=== PATIENT | female | born 1935 | race Caucasian/White ===

== ENCOUNTER → 2016-06-14 | Outpatient (CLI) | payer OTHER ==
[2016-06-14 12:17] LABS: ALBUMIN 3.5 GM/DL (3.2-5.2); ALBUMIN/GLOBULIN RATIO 1.03 (1.00-1.93); ALKALINE PHOSPHATASE 48 U/L (45-117); ALT/SGPT 14 U/L (12-78); ANION GAP 11 MEQ/L (8-16); AST/SGOT 13 U/L (15-37); BILIRUBIN,TOTAL 0.6 MG/DL (0.2-1.0); BLOOD UREA NITROGEN 20 MG/DL (7-18); CALCIUM LEVEL 8.7 MG/DL (8.8-10.2); CARBON DIOXIDE LEVEL 26 MEQ/L (21-32); CHLORIDE LEVEL 103 MEQ/L (98-107); CREATININE FOR GFR 0.82 MG/DL (0.55-1.02); GLOMERULAR FILTRATION RATE > 60.0 (>32); GLUCOSE, FASTING 205 MG/DL (83-110); POTASSIUM SERUM 3.9 MEQ/L (3.5-5.1); SODIUM LEVEL 140 MEQ/L (136-145); TOTAL PROTEIN 6.9 GM/DL (6.4-8.2)
== END ==
LOC: M WUC 08:44
PROVIDERS: ATTEND Nurse Practitioner Family
DX: E11.618 Type 2 diabetes mellitus with other diabetic arthropathy (principal)

== ENCOUNTER → 2016-09-27 | Outpatient (CLI) | payer OTHER ==
--- NOTE | 2016-09-27 13:22 | REP ---
Left hand series: Four views. History: Pain. Findings: Four views of the left hand show diffuse osteopenia. There is advanced osteoarthritis at the first carpometacarpal articulation and at the PIP joints of each of the fingers and to a lesser extent the DIP joint. Vascular calcification is noted. There is diffuse soft tissue swelling over the carpus and distal radius. No erosive change or fracture is seen. Impression: Advanced osteoarthritic changes. Soft tissue swelling. Osteopenia. Vascular calcification. Signed by Braxton Godoy MD 09/27/2016 01:40 P
--- NOTE | 2016-09-27 13:22 | REP ---
Right wrist series: Four views. History: Pain and swelling. Findings: Four views of the right wrist show diffuse osteopenia. There is diffuse soft tissue swelling about the carpus. Vascular calcification is noted. No fracture is seen. There is osteoarthritic change in several of the intercarpal joints and in the first carpometacarpal articulation. Impression: Osteoarthritis. Diffuse osteoporosis. Soft tissue swelling and vascular calcification. There is also widening of the naviculo-lunate interval consistent with degeneration of the naviculo-lunate ligament. No acute bony abnormality seen. Signed by Braxton Godoy MD 09/27/2016 01:41 P
== END ==
LOC: M WUC 11:58
PROVIDERS: ATTEND Physician Assistant
DX: M85.80 Other specified disorders of bone density and structure, unspecified site (principal); M61.441 Other calcification of muscle, right hand; M25.531 Pain in right wrist; M79.642 Pain in left hand

== ENCOUNTER → 2016-11-10 | Outpatient (REF) | payer OTHER | LOC: M LAB REF 10:31 | PROVIDERS: ATTEND Physician Assistant | DX: J02.9 Acute pharyngitis, unspecified (principal) ==

== ENCOUNTER → 2016-11-28 | Outpatient (CLI) | payer OTHER ==
[2016-11-28 12:31] LABS: MEAN CORPUSCULAR HEMOGLOBIN 31.9 pg (27.0-33.0); MEAN CORPUSCULAR HGB CONC 33.2 g/dl (32.0-36.5); MEAN CORPUSCULAR VOLUME 96.3 fl (80.0-96.0); RED CELL DISTRIBUTION WIDTH 13.6 % (11.5-14.5); WHITE BLOOD COUNT 12.5 10^3/uL (4.0-10.0)
[2016-11-28 12:59] LABS: ALBUMIN 3.2 GM/DL (3.2-5.2); ALBUMIN/GLOBULIN RATIO 0.91 (1.00-1.93); ALKALINE PHOSPHATASE 48 U/L (45-117); ALT/SGPT 13 U/L (12-78); ANION GAP 11 MEQ/L (8-16); AST/SGOT 10 U/L (15-37); BILIRUBIN,TOTAL 0.8 MG/DL (0.2-1.0); BLOOD UREA NITROGEN 13 MG/DL (7-18); CALCIUM LEVEL 8.8 MG/DL (8.8-10.2); CARBON DIOXIDE LEVEL 27 MEQ/L (21-32); CHLORIDE LEVEL 101 MEQ/L (98-107); CHOLESTEROL LEVEL 159 MG/DL (<200); CREATININE FOR GFR 0.74 MG/DL (0.55-1.02); GLOMERULAR FILTRATION RATE > 60.0 (>32); GLUCOSE, FASTING 219 MG/DL (83-110); POTASSIUM SERUM 3.8 MEQ/L (3.5-5.1); SODIUM LEVEL 139 MEQ/L (136-145); TOTAL PROTEIN 6.7 GM/DL (6.4-8.2); TRIGLYCERIDES LEVEL 279 MG/DL (<150)
== END ==
LOC: M WUC 08:27
PROVIDERS: ATTEND Family Medicine
DX: M06.9 Rheumatoid arthritis, unspecified (principal); E11.618 Type 2 diabetes mellitus with other diabetic arthropathy

== ENCOUNTER → 2017-01-31 | Day surgery (SDC) | payer OTHER ==
[~2017-01-31] VITALS: Ht 157.5 cm; Wt 70.7 kg
[~2017-01-31] MED LIST: ACETYLCHOLINE OPHTH SOLN 1% 2ML (MIOCHOL-E) As Ordered ONE; ASPI81CH PO; BALANCED SALT IRRIGATION SOLUTION 500ML BAG (FOR OR EYE MACHINE) As Ordered ONE; BISO5TAB2 PO; CEFUROXIME 1MG/0.1ML INTRACAMERAL INJ As Ordered ONE; DUOVISC (0.50ML VISCOAT/0.55ML PROVISC) OPHTH KIT As Ordered ONE; GLIM2TA PO; HumaLOG INSULIN (NovoLOG) PER UNIT As Ordered ONE; HumaLOG INSULIN (NovoLOG) PER UNIT SC ONE; LABETALOL HCL 100 MG/20 ML VIAL As Ordered ONE; LIDOCAINE 0.75%/EPINEPHRINE 0.025% IN BSS 1ML SYR INTRACAMERAL (OR ONLY) As Ordered ONE; LOSA50TA20 PO; MELA5TAB21 PO; METF10004 PO; MIDAZOLAM INJ 2 MG/2 ML VIAL (J2250) As Ordered ONE; OFLOXACIN 0.3 % (OCUFLOX) OPTH SOL 5ML OS ONE; PHENYLEPHRINE 2.5% OPHTH SOL 2ML OS ONE; POVIDONE-IODINE 5% OPHTH PREP SOL 30ML As Ordered ONE; PRAV40TA2 PO; PROBCAP4 PO; PROPARACAINE 0.5% OPHTH SOL 15ML OS ONE; TROPICAMIDE 1% OPHTH SOLN 2ML OS ONE; VITADRO5 PO; fentaNYL 100 MCG/2 ML INJECTION (J3010) As Ordered ONE
[2017-01-31 12:41] VITALS: BP 148/68
--- NOTE | 2017-02-07 09:58 | RO ---
DATE OF PROCEDURE: 01/31/2017 PREOPERATIVE DIAGNOSES: 1. Visually significant nuclear sclerotic cataract of the left eye. 2. Glaucoma. POSTOPERATIVE DIAGNOSES: 1. Visually significant nuclear sclerotic cataract of the left eye. 2. Glaucoma. PROCEDURE: 1. Extracapsular cataract removal and insertion of intraocular lens implant AU00T0, 20.5. 2. Placement of Glaukos iStent left eye. SURGEON: Wilbur Chamorro DO FIELD INSPECTOR: ANESTHESIA: Local with monitored anesthesia care (MAC). COMPLICATIONS: None. POSTOPERATIVE CONDITION: Stable. INDICATION FOR SURGERY: Blurred vision left eye affecting patient's activities of daily living. DESCRIPTION OF PROCEDURE: The patient was seen in the preoperative area and properly identified. The correct operative eye was identified and marked. Attention was turned to that eye. The patient received topical antibiotics in the preoperative area. The patient then received topical dilating drops consisting of tropicamide and phenylephrine. The patient was then transferred to the operating room. The correct side was re-identified. The patient received topical anesthetics and antibiotics on the surface of the eye. The eye was prepped and draped in a sterile fashion. The upper and lower eyelids were isolated with Tegaderm tape, and the lids were held open with an adjustable speculum. Using a sideport blade, a paracentesis incision was made. Intraocular preservative-free lidocaine was then injected into the anterior chamber. Viscoelastic was then injected into the anterior chamber through the paracentesis. Using a 2.4 mm sharp-tipped keratome, the anterior chamber was entered via a temporal clear corneal incision. A continuous curvilinear capsulorrhexis was created with the aid of a 26-gauge cystotome and Utrata forceps. Hydrodissection was performed with balanced salt solution (BSS) on a blunt cannula until the nucleus was freely mobile. The crystalline lens was phacoemulsified and aspirated. Additional cohesive viscoelastic was placed into the capsular bag to deepen it. An AU00T0, 25.0 lens was placed into the capsular bag and confirmed by visualizing the continuous curvilinear capsulorrhexis. After the implant was placed within the capsular bag and confirmed by visualizing the anterior capsulorrhexis, additional viscoelastic was placed into the anterior chamber as well as on top of the cornea. The patient's head was then untaped, and the microscope was rotated to approximately 45 degrees. The head was then turned away. Gonioprism was placed on top of the cornea, and the trabecular meshwork was visualized. The Glaukos iStent was placed through the temporal clear corneal incision and brought up to the trabecular meshwork. At that time, the iStent was fed within the trabecular meshwork without difficulty. A small gush of heme was noted indicating appropriate placement. A gentle tapping motion was performed to allow proper seating. The patient's head was then rotated back to the face-up position, and microscope was rotated back to 0 degrees. Irrigation/aspiration was then performed to remove all viscoelastic from the anterior chamber. Balance salt solution (BSS) was used to hydrate the temporal clear corneal incision as well as the paracentesis incision. Miochol was placed showing a moderately small pupil. A Weck spear was used to check the temporal incision and was found to be dry. At that time, the drape and speculum were removed and a shield was placed over the eye. The patient was then discharge to the postanesthesia care unit (PACU) unit in a stable condition. The patient tolerated the procedure well and was discharged to the recovery unit in a stable condition. CORETTA
== END | disposition home or self-care (01) ==
LOC: M SDC 08:48
PROVIDERS: ATTEND Ophthalmology
DX: H25.12 Age-related nuclear cataract, left eye (principal); H40.9 Unspecified glaucoma; I10 Essential (primary) hypertension; E11.9 Type 2 diabetes mellitus without complications; E78.5 Hyperlipidemia, unspecified; M06.9 Rheumatoid arthritis, unspecified; I49.9 Cardiac arrhythmia, unspecified; Z88.8 Allergy status to other drugs, medicaments and biological substances; Z79.899 Other long term (current) drug therapy; Z79.82 Long term (current) use of aspirin; Z87.891 Personal history of nicotine dependence; Z78.0 Asymptomatic menopausal state
CPT/HCPCS: 66183; 66984; C1783; J2250; J3010; V2632

== ENCOUNTER 2017-02-14 09:55 | Day surgery (SDC) | payer OTHER ==
[~2017-02-14 09:55] MED LIST changes: +ACETAMINOPHEN 325 MG TAB PO; -ACETYLCHOLINE OPHTH SOLN 1% 2ML (MIOCHOL-E) As Ordered ONE; -ASPI81CH PO; -BALANCED SALT IRRIGATION SOLUTION 500ML BAG (FOR OR EYE MACHINE) As Ordered ONE; -BISO5TAB2 PO; -CEFUROXIME 1MG/0.1ML INTRACAMERAL INJ As Ordered ONE; -DUOVISC (0.50ML VISCOAT/0.55ML PROVISC) OPHTH KIT As Ordered ONE; -GLIM2TA PO; -HumaLOG INSULIN (NovoLOG) PER UNIT As Ordered ONE; -HumaLOG INSULIN (NovoLOG) PER UNIT SC ONE; -LABETALOL HCL 100 MG/20 ML VIAL As Ordered ONE; -LIDOCAINE 0.75%/EPINEPHRINE 0.025% IN BSS 1ML SYR INTRACAMERAL (OR ONLY) As Ordered ONE; -LOSA50TA20 PO; -MELA5TAB21 PO; -METF10004 PO; +MIDAZOLAM INJ 2 MG/2 ML VIAL (J2250) As Ordered; -MIDAZOLAM INJ 2 MG/2 ML VIAL (J2250) As Ordered ONE; -OFLOXACIN 0.3 % (OCUFLOX) OPTH SOL 5ML OS ONE; -PHENYLEPHRINE 2.5% OPHTH SOL 2ML OS ONE; -POVIDONE-IODINE 5% OPHTH PREP SOL 30ML As Ordered ONE; -PRAV40TA2 PO; -PROBCAP4 PO; -PROPARACAINE 0.5% OPHTH SOL 15ML OS ONE; -TROPICAMIDE 1% OPHTH SOLN 2ML OS ONE; -VITADRO5 PO; -fentaNYL 100 MCG/2 ML INJECTION (J3010) As Ordered ONE
[2017-02-14] MEDS: PHENYLEPHRINE 2.5% OPHTH SOL 2ML OD (10:30)
[2017-02-14] MEDS: OFLOXACIN 0.3 % (OCUFLOX) OPTH SOL 5ML OD (10:30)
[2017-02-14] MEDS: PROPARACAINE 0.5% OPHTH SOL 15ML OD ×2 (10:30→13:32)
[2017-02-14] MEDS: TROPICAMIDE 1% OPHTH SOLN 2ML OD (10:30)
[2017-02-14] MEDS ORDERED: HumaLOG INSULIN (NovoLOG) PER UNIT As Ordered (10:35)
[2017-02-14 10:39] LABS: BEDSIDE GLUCOSE 270 MG/DL (83-110)
[2017-02-14] MEDS: HumaLOG INSULIN (NovoLOG) PER UNIT SC (10:40)
[2017-02-14] MEDS ORDERED: fentaNYL 100 MCG/2 ML INJECTION (J3010) As Ordered (11:19)
[2017-02-14] MEDS: BALANCED SALT IRRIGATION SOLUTION 500ML BAG (FOR OR EYE MACHINE) As Ordered (11:32)
[2017-02-14] MEDS: LIDOCAINE 0.75%/EPINEPHRINE 0.025% IN BSS 1ML SYR INTRACAMERAL (OR ONLY) As Ordered (11:32)
[2017-02-14] MEDS: CEFUROXIME 1MG/0.1ML INTRACAMERAL INJ As Ordered (11:32)
[2017-02-14] MEDS: DUOVISC (0.50ML VISCOAT/0.55ML PROVISC) OPHTH KIT As Ordered ×2 (11:32)
[2017-02-14] MEDS: ACETYLCHOLINE OPHTH SOLN 1% 2ML (MIOCHOL-E) As Ordered (11:32)
[2017-02-14] MEDS: POVIDONE-IODINE 5% OPHTH PREP SOL 30ML As Ordered (11:32)
[2017-02-14] MEDS ORDERED: TRIMETHOBENZAMIDE 300 MG CAP PO (13:30)
== END 2017-02-14 13:50 | disposition home or self-care (01) ==
LOC: M SDC 09:55
DX: H25.11 Age-related nuclear cataract, right eye (principal); H40.9 Unspecified glaucoma; I49.9 Cardiac arrhythmia, unspecified; I11.9 Hypertensive heart disease without heart failure; E78.2 Mixed hyperlipidemia; K31.84 Gastroparesis; E11.618 Type 2 diabetes mellitus with other diabetic arthropathy; M06.9 Rheumatoid arthritis, unspecified; B37.3 Candidiasis of vulva and vagina; Z88.8 Allergy status to other drugs, medicaments and biological substances; Z79.899 Other long term (current) drug therapy; Z79.82 Long term (current) use of aspirin; Z79.84 Long term (current) use of oral hypoglycemic drugs; Z87.891 Personal history of nicotine dependence
CPT/HCPCS: 66984

== ENCOUNTER → 2017-03-05 | Outpatient (CLI) | payer OTHER | LOC: M WUC 14:31 | DX: M25.532 Pain in left wrist (principal); M19.032 Primary osteoarthritis, left wrist | CPT/HCPCS: 73110 ==

== ENCOUNTER → 2017-05-09 | Outpatient (CLI) | payer OTHER ==
[2017-05-09 13:30] LABS: ANION GAP 10 MEQ/L (8-16); BLOOD UREA NITROGEN 13 MG/DL (7-18); CALCIUM LEVEL 8.9 MG/DL (8.8-10.2); CARBON DIOXIDE LEVEL 25 MEQ/L (21-32); CHLORIDE LEVEL 106 MEQ/L (98-107); CREATININE FOR GFR 0.82 MG/DL (0.55-1.30); GLOMERULAR FILTRATION RATE > 60.0 (>32); GLUCOSE, FASTING 252 MG/DL (70-100); POTASSIUM SERUM 3.9 MEQ/L (3.5-5.1); SODIUM LEVEL 141 MEQ/L (136-145)
[2017-05-09 13:37] LABS: ESTIMATED AVERAGE GLUCOSE 243 MG/DL (60-110); HEMOGLOBIN A1c 10.1 %
== END ==
LOC: M WUC 09:53
DX: E11.618 Type 2 diabetes mellitus with other diabetic arthropathy (principal)
CPT/HCPCS: 83036

== ENCOUNTER → 2017-08-01 | Outpatient (CLI) | payer OTHER ==
[2017-08-01 13:15] LABS: ANION GAP 12 MEQ/L (8-16); BLOOD UREA NITROGEN 15 MG/DL (7-18); CALCIUM LEVEL 8.5 MG/DL (8.8-10.2); CARBON DIOXIDE LEVEL 26 MEQ/L (21-32); CHLORIDE LEVEL 101 MEQ/L (98-107); CREATININE FOR GFR 0.89 MG/DL (0.55-1.30); GLOMERULAR FILTRATION RATE > 60.0 (>32); GLUCOSE, FASTING 250 MG/DL (70-100); POTASSIUM SERUM 3.8 MEQ/L (3.5-5.1); SODIUM LEVEL 139 MEQ/L (136-145)
[2017-08-01 13:48] LABS: ESTIMATED AVERAGE GLUCOSE 217 MG/DL (60-110); HEMOGLOBIN A1c 9.2 %
== END ==
LOC: M WUC 09:13
DX: E11.618 Type 2 diabetes mellitus with other diabetic arthropathy (principal)
CPT/HCPCS: 83036

== ENCOUNTER → 2017-08-26 | Outpatient (CLI) | payer OTHER ==
[2017-08-26 17:13] LABS: BACTERIA, URINE AUTO NEGATIVE (NEGATIVE); RBC, URINE AUTO 0 /HPF (0-3); SQUAMOUS EPITHELIAL CELL UR AU 0 /HPF (0-6); WBC, URINE AUTO 0 /HPF (0-3)
[2017-08-26 17:31] LABS: BASO % 0.4 % (0.0-1.0); EOS # 0.1 10^3/uL (0.0-0.50); EOS % 1.4 % (0.0-3.0); HEMATOCRIT 38.8 % (36.0-47.0); HEMOGLOBIN 12.8 g/dl (12.0-15.5); IMMATURE GRANULOCYTE % 0.1 % (0-3.0); LYMPH # 2.4 10^3/uL (1.5-4.5); LYMPH % 30.3 % (24.0-44.0); MEAN CORPUSCULAR HEMOGLOBIN 31.5 pg (27.0-33.0); MEAN CORPUSCULAR VOLUME 95.6 fl (80.0-96.0); MONO # 0.5 10^3/uL (0.0-0.8); NEUTROPHILS # 4.7 10^3/uL (1.8-7.7); NEUTROPHILS % 60.8 % (36.0-66.0); PLATELET COUNT, AUTOMATED 215 10^3/uL (150-450); RED BLOOD COUNT 4.06 10^6/uL (4.00-5.40); RED CELL DISTRIBUTION WIDTH 13.3 % (11.5-14.5); WHITE BLOOD COUNT 7.8 10^3/uL (4.0-10.0)
[2017-08-26 18:01] LABS: ALBUMIN 3.4 GM/DL (3.2-5.2); ALBUMIN/GLOBULIN RATIO 0.87 (1.00-1.93); ALKALINE PHOSPHATASE 49 U/L (45-117); ALT/SGPT 16 U/L (12-78); ANION GAP 10 MEQ/L (8-16); AST/SGOT 13 U/L (7-37); BILIRUBIN,TOTAL 0.5 MG/DL (0.2-1.0); BLOOD UREA NITROGEN 13 MG/DL (7-18); CALCIUM LEVEL 9.3 MG/DL (8.8-10.2); CARBON DIOXIDE LEVEL 26 MEQ/L (21-32); CHLORIDE LEVEL 103 MEQ/L (98-107); CREATININE FOR GFR 0.88 MG/DL (0.55-1.30); GLOMERULAR FILTRATION RATE > 60.0 (>32); GLUCOSE, FASTING 218 MG/DL (70-100); POTASSIUM SERUM 4.5 MEQ/L (3.5-5.1); SODIUM LEVEL 139 MEQ/L (136-145); TOTAL PROTEIN 7.3 GM/DL (6.4-8.2)
== END ==
LOC: M WUC 13:15
DX: R10.32 Left lower quadrant pain (principal)
CPT/HCPCS: 80053

== ENCOUNTER → 2017-08-27 | Outpatient (CLI) | payer OTHER | LOC: M RAD 08:24 | DX: R10.32 Left lower quadrant pain (principal) | CPT/HCPCS: 76856 ==

== ENCOUNTER → 2017-12-05 | Outpatient (CLI) | payer OTHER ==
[2017-12-05 13:33] LABS: BASO % 0.5 % (0.0-1.0); EOS # 0.2 10^3/uL (0.0-0.50); EOS % 2.9 % (0.0-3.0); HEMATOCRIT 37.2 % (36.0-47.0); HEMOGLOBIN 12.2 g/dl (12.0-15.5); IMMATURE GRANULOCYTE % 0.3 % (0-3.0); LYMPH # 2.3 10^3/uL (1.5-4.5); MEAN CORPUSCULAR HEMOGLOBIN 31.5 pg (27.0-33.0); MEAN CORPUSCULAR HGB CONC 32.8 g/dl (32.0-36.5); MEAN CORPUSCULAR VOLUME 96.1 fl (80.0-96.0); MONO # 0.6 10^3/uL (0.0-0.8); MONO % 8.3 % (0.0-5.0); NEUTROPHILS # 3.6 10^3/uL (1.8-7.7); PLATELET COUNT, AUTOMATED 137 10^3/uL (150-450); RED BLOOD COUNT 3.87 10^6/uL (4.00-5.40); RED CELL DISTRIBUTION WIDTH 13.6 % (11.5-14.5); WHITE BLOOD COUNT 6.7 10^3/uL (4.0-10.0)
[2017-12-05 13:40] LABS: ALBUMIN 3.3 GM/DL (3.2-5.2); ALBUMIN/GLOBULIN RATIO 0.97 (1.00-1.93); ALKALINE PHOSPHATASE 38 U/L (45-117); ALT/SGPT 17 U/L (12-78); ANION GAP 11 MEQ/L (8-16); AST/SGOT 15 U/L (7-37); BILIRUBIN,TOTAL 0.5 MG/DL (0.2-1.0); BLOOD UREA NITROGEN 19 MG/DL (7-18); CARBON DIOXIDE LEVEL 27 MEQ/L (21-32); CHLORIDE LEVEL 101 MEQ/L (98-107); CHOLESTEROL LEVEL 183 MG/DL (<200); CHOLESTEROL RISK RATIO 3.155 (<5); GLOMERULAR FILTRATION RATE > 60.0 (>32); GLUCOSE, FASTING 270 MG/DL (70-100); HDL CHOLESTEROL 58 MG/DL (>40); LDL CHOLESTEROL 68 MG/DL (<100); NON-HDL-C 125 MG/DL; POTASSIUM SERUM 4.5 MEQ/L (3.5-5.1); SODIUM LEVEL 139 MEQ/L (136-145); TOTAL PROTEIN 6.7 GM/DL (6.4-8.2); TRIGLYCERIDES LEVEL 283 MG/DL (<150)
[2017-12-05 13:47] LABS: ESTIMATED AVERAGE GLUCOSE 203 MG/DL (60-110); HEMOGLOBIN A1c 8.7 %
[2017-12-05 13:51] LABS: TOTAL 25(OH) VITAMIN D 48.8 NG/ML (30.0-100.0)
[2017-12-05 14:30] LABS: CREATININE, URINE 89.4 MG/DL; MALB URINE SIEMENS 28.4 MG/L; MAU/CREAT RATIO 31.8 MCG/MG (0.0-30.0)
[2017-12-05 14:45] LABS: POS COUNT POS FLAG
== END ==
LOC: M WUC 09:24
DX: D72.829 Elevated white blood cell count, unspecified (principal); E11.618 Type 2 diabetes mellitus with other diabetic arthropathy; E78.2 Mixed hyperlipidemia; E55.9 Vitamin D deficiency, unspecified; Z79.899 Other long term (current) drug therapy
CPT/HCPCS: 80053

== ENCOUNTER → 2018-08-26 | Outpatient (CLI) | payer MEDICARE ==
[~2018-08-26] MED LIST changes: -ACETAMINOPHEN 325 MG TAB PO; +ASPI81CH49 PO; +BISO5TAB2 PO; +GLIM2TAB29 PO; +LOSA50TA88 PO; +MELA5TAB21 PO; +METF10004 PO; -MIDAZOLAM INJ 2 MG/2 ML VIAL (J2250) As Ordered; +PRAV40TA2 PO; +PROBCAP4 PO; +VITADRO5 PO
[2018-08-26 13:44] LABS: HEMATOCRIT 38.3 % (36.0-47.0); HEMOGLOBIN 12.6 g/dl (12.0-15.5); MEAN CORPUSCULAR HEMOGLOBIN 32.6 pg (27.0-33.0); MEAN CORPUSCULAR HGB CONC 32.9 g/dl (32.0-36.5); PLATELET COUNT, AUTOMATED 180 10^3/uL (150-450); RED BLOOD COUNT 3.87 10^6/uL (4.00-5.40); WHITE BLOOD COUNT 7.1 10^3/uL (4.0-10.0)
[2018-08-26 13:45] LABS: ALBUMIN 3.4 GM/DL (3.2-5.2); ALT/SGPT 16 U/L (12-78); BILIRUBIN,TOTAL 0.6 MG/DL (0.2-1.0); BLOOD UREA NITROGEN 14 MG/DL (7-18); CALCIUM LEVEL 9.2 MG/DL (8.8-10.2); CARBON DIOXIDE LEVEL 27 MEQ/L (21-32); CHLORIDE LEVEL 105 MEQ/L (98-107); CHOLESTEROL LEVEL 166 MG/DL (<200); CHOLESTEROL RISK RATIO 2.677 (<5); CREATININE FOR GFR 0.89 MG/DL (0.55-1.30); GLOMERULAR FILTRATION RATE > 60.0 (>32); GLUCOSE, FASTING 183 MG/DL (70-100); HDL CHOLESTEROL 62 MG/DL (>40); LDL CHOLESTEROL 48 MG/DL (<100); NON-HDL-C 104 MG/DL; SODIUM LEVEL 142 MEQ/L (136-145); TOTAL PROTEIN 6.7 GM/DL (6.4-8.2); TRIGLYCERIDES LEVEL 282 MG/DL (<150)
[2018-08-26 13:53] LABS: VITAMIN B12 LEVEL 1026 PG/ML (247-911)
[2018-08-26 14:08] LABS: HEMOGLOBIN A1c 8.6 %
[2018-08-26 14:25] LABS: MALB URINE SIEMENS 23.2 MG/L; MAU/CREAT RATIO 20.5 MCG/MG (0.0-30.0)
== END ==
LOC: M WUC 08:59
PROVIDERS: ATTEND Family Medicine
DX: E53.8 Deficiency of other specified B group vitamins (principal); E11.618 Type 2 diabetes mellitus with other diabetic arthropathy; E78.2 Mixed hyperlipidemia

== ENCOUNTER → 2018-12-24 | Outpatient (CLI) | payer MEDICARE ==
[2018-12-24 11:21] LABS: HEMOGLOBIN A1c 8.2 %
[2018-12-24 11:31] LABS: BLOOD UREA NITROGEN 15 MG/DL (7-18); CALCIUM LEVEL 9.5 MG/DL (8.8-10.2); CARBON DIOXIDE LEVEL 29 MEQ/L (21-32); CHLORIDE LEVEL 104 MEQ/L (98-107); CREATININE FOR GFR 0.85 MG/DL (0.55-1.30); GLOMERULAR FILTRATION RATE > 60.0 (>32); GLUCOSE, FASTING 224 MG/DL (70-100); POTASSIUM SERUM 4.3 MEQ/L (3.5-5.1); SODIUM LEVEL 140 MEQ/L (136-145)
== END ==
LOC: M WUC 08:21
PROVIDERS: ATTEND Family Medicine
DX: E11.618 Type 2 diabetes mellitus with other diabetic arthropathy (principal)

== ENCOUNTER → 2018-12-31 | Outpatient (REF) | payer MEDICARE ==
[2018-12-31 13:15] LABS: APPEARANCE, URINE CLOUDY (CLEAR); BACTERIA, URINE AUTO NEGATIVE (NEGATIVE); BILIRUBIN, URINE AUTO NEGATIVE (NEGATIVE); BLOOD, URINE BLOOD 2+ (NEGATIVE); COLOR, URINE YELLOW (YELLOW); GLUCOSE, URINE (UA) AUTO 3+ mg/dL (NEGATIVE); KETONE, URINE AUTO NEGATIVE (NEGATIVE); LEUKOCYTE ESTERASE, URINE AUTO TRACE (NEGATIVE); NITRITE, URINE AUTO NEGATIVE (NEGATIVE); PROTEIN, URINE AUTO NEGATIVE (NEGATIVE); RBC, URINE AUTO 27 /HPF (0-3); SPECIFIC GRAVITY URINE AUTO 1.014 (1.002-1.035); SQUAMOUS EPITHELIAL CELL UR AU 0 /HPF (0-6); UROBILINOGEN, URINE AUTO 0.2 mg/dL (0.0-2.0); WBC, URINE AUTO 6 /HPF (0-3)
== END ==
LOC: M SFHCADAM 10:17
PROVIDERS: ATTEND Family Medicine
DX: R10.30 Lower abdominal pain, unspecified (principal)
CPT/HCPCS: 81001; 87088; 87186; G0463

== ENCOUNTER → 2019-02-24 | Outpatient (REF) | payer MEDICARE ==
[2019-02-24 10:57] LABS: BLOOD UREA NITROGEN 16 MG/DL (7-18); CALCIUM LEVEL 9.4 MG/DL (8.8-10.2); CARBON DIOXIDE LEVEL 27 MEQ/L (21-32); CHLORIDE LEVEL 103 MEQ/L (98-107); GLOMERULAR FILTRATION RATE > 60.0 (>32); GLUCOSE, FASTING 223 MG/DL (70-100); POTASSIUM SERUM 3.9 MEQ/L (3.5-5.1); SODIUM LEVEL 139 MEQ/L (136-145)
== END ==
LOC: M LABWUC 09:55
PROVIDERS: ATTEND Family Medicine
DX: E11.618 Type 2 diabetes mellitus with other diabetic arthropathy (principal); I11.9 Hypertensive heart disease without heart failure

== ENCOUNTER → 2019-06-12 | Outpatient (CLI) | payer MEDICARE ==
[2019-06-12 12:15] LABS: HEMOGLOBIN A1c 9.2 %
[2019-06-12 12:19] LABS: BLOOD UREA NITROGEN 19 MG/DL (7-18); CALCIUM LEVEL 9.5 MG/DL (8.8-10.2); CARBON DIOXIDE LEVEL 27 MEQ/L (21-32); CHLORIDE LEVEL 101 MEQ/L (98-107); GLOMERULAR FILTRATION RATE > 60.0 (>32); GLUCOSE, FASTING 243 MG/DL (70-100); POTASSIUM SERUM 4.2 MEQ/L (3.5-5.1); SODIUM LEVEL 137 MEQ/L (136-145)
== END ==
LOC: M WUC 09:57
PROVIDERS: ATTEND Family Medicine
DX: E11.621 Type 2 diabetes mellitus with foot ulcer (principal)

== ENCOUNTER → 2019-10-21 | Outpatient (CLI) | payer MEDICARE ==
[2019-10-21 11:03] LABS: HEMATOCRIT 41.7 % (36.0-47.0); HEMOGLOBIN 13.8 g/dl (12.0-15.5); MEAN CORPUSCULAR HEMOGLOBIN 32.2 pg (27.0-33.0); MEAN CORPUSCULAR HGB CONC 33.1 g/dl (32.0-36.5); MEAN CORPUSCULAR VOLUME 97.2 fl (80.0-96.0); PLATELET COUNT, AUTOMATED 164 10^3/uL (150-450); RED BLOOD COUNT 4.29 10^6/uL (4.00-5.40); WHITE BLOOD COUNT 7.7 10^3/uL (4.0-10.0)
[2019-10-21 11:31] LABS: ALBUMIN 3.2 GM/DL (3.2-5.2); ALT/SGPT 15 U/L (12-78); BILIRUBIN,TOTAL 0.7 MG/DL (0.2-1.0); BLOOD UREA NITROGEN 18 MG/DL (7-18); CALCIUM LEVEL 9.1 MG/DL (8.8-10.2); CARBON DIOXIDE LEVEL 28 MEQ/L (21-32); CHLORIDE LEVEL 101 MEQ/L (98-107); CHOLESTEROL LEVEL 189 MG/DL (<200); CHOLESTEROL RISK RATIO 3.375 (<5); CREATININE FOR GFR 0.94 MG/DL (0.55-1.30); GLOMERULAR FILTRATION RATE > 60.0 (>32); GLUCOSE, FASTING 265 MG/DL (70-100); HDL CHOLESTEROL 56 MG/DL (>40); LDL CHOLESTEROL 74 MG/DL (<100); NON-HDL-C 133 MG/DL; POTASSIUM SERUM 3.6 MEQ/L (3.5-5.1); SODIUM LEVEL 137 MEQ/L (136-145); TOTAL PROTEIN 6.8 GM/DL (6.4-8.2); TRIGLYCERIDES LEVEL 295 MG/DL (<150)
[2019-10-21 12:25] LABS: HEMOGLOBIN A1c 9.7 %
== END ==
LOC: M WUC 08:21
PROVIDERS: ATTEND Family Medicine
DX: E11.618 Type 2 diabetes mellitus with other diabetic arthropathy (principal); E78.2 Mixed hyperlipidemia; L60.0 Ingrowing nail

== ENCOUNTER → 2020-01-14 | Outpatient (CLI) | payer MEDICARE ==
[2020-01-14 11:26] LABS: BLOOD UREA NITROGEN 21 MG/DL (7-18); CALCIUM LEVEL 9.4 MG/DL (8.8-10.2); CARBON DIOXIDE LEVEL 26 MEQ/L (21-32); CHLORIDE LEVEL 105 MEQ/L (98-107); CREATININE FOR GFR 0.84 MG/DL (0.55-1.30); GLOMERULAR FILTRATION RATE > 60.0 (>32); GLUCOSE, FASTING 125 MG/DL (70-100); POTASSIUM SERUM 3.7 MEQ/L (3.5-5.1); SODIUM LEVEL 141 MEQ/L (136-145)
[2020-01-14 12:13] LABS: HEMOGLOBIN A1c 7.9 %
== END ==
LOC: M WUC 08:11
PROVIDERS: ATTEND Family Medicine
DX: E11.618 Type 2 diabetes mellitus with other diabetic arthropathy (principal)

== ENCOUNTER → 2020-04-26 | Outpatient (CLI) | payer MEDICARE ==
[2020-04-26 12:53] LABS: BLOOD UREA NITROGEN 23 MG/DL (7-18); CALCIUM LEVEL 9.7 MG/DL (8.8-10.2); CARBON DIOXIDE LEVEL 29 MEQ/L (21-32); CHLORIDE LEVEL 105 MEQ/L (98-107); CREATININE FOR GFR 0.85 MG/DL (0.55-1.30); GLOMERULAR FILTRATION RATE > 60.0 (>32); GLUCOSE, FASTING 180 MG/DL (70-100); SODIUM LEVEL 140 MEQ/L (136-145)
[2020-04-26 17:24] LABS: HEMOGLOBIN A1c 7.5 %
== END ==
LOC: M WUC 08:52
PROVIDERS: ATTEND Family Medicine
DX: E11.618 Type 2 diabetes mellitus with other diabetic arthropathy (principal)

== ENCOUNTER → 2020-05-03 | Outpatient (REF) | payer MEDICARE ==
[2020-05-03 12:47] LABS: HEMATOCRIT 41.2 % (36.0-47.0); HEMOGLOBIN 13.7 g/dl (12.0-15.5); MEAN CORPUSCULAR HEMOGLOBIN 31.9 pg (27.0-33.0); MEAN CORPUSCULAR HGB CONC 33.3 g/dl (32.0-36.5); PLATELET COUNT, AUTOMATED 174 10^3/uL (150-450); RED BLOOD COUNT 4.29 10^6/uL (4.00-5.40); WHITE BLOOD COUNT 8.3 10^3/uL (4.0-10.0)
[2020-05-03 13:15] LABS: C REACTIVE PROTEIN QUANTITATIV < 0.30 MG/DL (0.00-0.30); RHEUMATOID FACTOR QUANT < 10.0 IU/ML (<15.0)
[2020-05-03 13:21] LABS: ERYTHROCYTE SEDIMENTATION RATE 34 mm/hr (0-30)
[2020-05-05 21:07] LABS: ANA (HEP2) Negative (.); CYCLIC CITRULLINATED PEPTIDE 6 units (0-19)
== END ==
LOC: M SFHCADAM 10:30
PROVIDERS: ATTEND Family Medicine
DX: M05.741 Rheumatoid arthritis with rheumatoid factor of right hand without organ or systems involvement (principal); M05.742 Rheumatoid arthritis with rheumatoid factor of left hand without organ or systems involvement

== ENCOUNTER → 2020-05-03 | Outpatient (CLI) | payer MEDICARE ==
--- NOTE | 2020-05-03 14:52 | REP ---
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 COMPARISON: Left wrist series March 05, 2017, left hand radiographs September 27, 2016.. TECHNIQUE: Four views. FINDINGS: Four views of the left hand demonstrate diffuse osteopenia. There is advanced osteoarthritis at the 1st carpometacarpal articulation with fragmented spurring, joint space narrowing, and subluxation. Vascular calcification is observed. There is erosive osteoarthritis affecting the PIP joints of the index, long, ring, and small finger. Soft tissue swelling is noted associated with these joints, most prominently affecting the ring finger and long finger. There are osteoarthritic changes with spurring at the DIP joints of all 4 fingers and the IP joint of the thumb.. There is a new radiolucency at the base of the 5th proximal phalanx at the 5th MCP joint which appears to be a ununited a chip fracture. It is intra-articular. On the AP view there is a erosion at the base of the 5th metacarpal at the 5th FDC joint. This was not apparent previously. The erosive osteoarthritic changes at the PIP joints have progressed slightly since the prior study.. No opaque foreign body noted. IMPRESSION: Findings consistent with erosive osteoarthritis as above, radiographically somewhat more pronounced when compared with the prior study. Nonunited fracture apparent at the base of the 5th proximal phalanx on today's study.. <Electronically signed by Wil Godoy > 05/03/20 [id number]
== END ==
LOC: M ADAMS 10:47
PROVIDERS: ATTEND Family Medicine
DX: M85.842 Other specified disorders of bone density and structure, left hand (principal); M19.042 Primary osteoarthritis, left hand; M05.741 Rheumatoid arthritis with rheumatoid factor of right hand without organ or systems involvement; M05.742 Rheumatoid arthritis with rheumatoid factor of left hand without organ or systems involvement
CPT/HCPCS: 73130; 85027; 85652; 86038; 86140; 86200; 86431; G0463

== ENCOUNTER → 2020-06-06 | Outpatient (CLI) | payer MEDICARE ==
--- NOTE | 2020-06-06 13:29 | REP ---
INDICATION: PVD. COMPARISON: None TECHNIQUE: Bilateral lower extremity arterial ultrasound FINDINGS: Right: All values are peak systolic velocity Ankle brachial index unobtainable MOLD BUNCH TRIMMER: 184.5 centimeters/second monophasic Profunda: 152.7 centimeters/second monophasic SFA proximal: 76.3-37.0 cm/S monophasic SFA mid: 148.1234.9 cm/S monophasic SFA distal: 11.3 cm/S monophasic Popliteal: 29.2 cm/S monophasic DANISHA proximal 19.7 cm/S monophasic Tibioperoneal trunk: 22.5 cm/S monophasic CREDIT AND COLLECTIONS ANALYST proximal: 21.2 cm/S monophasic CREDIT AND COLLECTIONS ANALYST distal: 17.4 cm/S monophasic DANISHA distal: 26.6 cm/S monophasic Left: All values are peak systolic velocity MOLD BUNCH TRIMMER: 124.9 cm/S biphasic Profunda: 93.9 cm/S biphasic SFA proximal: 60.8-141.6 cm/S biphasic SFA mid: 26.8 cm/S monophasic SFA distal: 59.6 cm/S monophasic Popliteal: 33.3 cm/S monophasic DANISHA proximal: 22.4 cm/S monophasic Tibioperoneal trunk: 37.2 cm/S monophasic CREDIT AND COLLECTIONS ANALYST proximal: 27.3 cm/S monophasic CREDIT AND COLLECTIONS ANALYST distal: 54.6 cm/S monophasic DANISHA distal: 12.4 cm/S monophasic The technologist noted severe plaque formation seen in the lower extremity bilaterally from the common femoral artery to the ankle. The left SFA proximally was seen with the 2:1 stenosis. IMPRESSION: There is no evidence of an acute fracture or destructive osseous lesion. The mortise is within normal limits. <Electronically signed by Luis Lanier > 06/06/20 [id number]
== END ==
LOC: M RAD 10:15
PROVIDERS: ATTEND Podiatrist Foot & Ankle Surgery
DX: I73.9 Peripheral vascular disease, unspecified (principal)

== ENCOUNTER → 2020-06-28 | Outpatient (POV) | payer MEDICARE ==
[~2020-06-28] VITALS: Ht 157.5 cm; Wt 97.8 kg
[2020-06-28 14:20] VITALS: BP 142/78
--- NOTE | 2020-06-29 13:00 | IRCOV ---
[facility] IR Consult Office Visit IR Consult Office Visit DATE: June 28, 2020 REASON FOR CONSULTATION/CHIEF COMPLAINT: Right toe swelling. Abnormal arterial ultrasound. HISTORY OF PRESENT ILLNESS: 84-year-old female with diabetes, hypertension, hyperlipidemia and history of arthritis, presents for right toe redness and swelling, which started 3 months ago. She reports her right toes do not hurt. They are just swollen, red and "look ugly" all the time. She denies pain associated with this. She denies any numbness in the feet. She denies intermittent claudication. She denies rest pain with leg elevation. She denies prior cold leg, amputation or gangrene. She denies prior lower extremity bypass grafting, angioplasty or venous procedures. She denies limb swelling. She is an ex smoker; quit 25 years ago. She denies chest pain, shortness of breath, orthopnea or paroxysmal nocturnal dyspnea. No history of heart attack or stroke. ALLERGIES: Please see below. HOME MEDICATIONS: Please see below. PAST MEDICAL HISTORY: Diabetes Hypertension Esophageal reflux Hiatal hernia Fatty liver Colonic polyps Metabolic syndrome Hyperlipidemia Diverticulosis Postherpetic neuralgia Rheumatoid arthritis Vaginitis Vitamin B12 deficiency PAST SURGICAL HISTORY: Cholecystectomy Abdominal Left-sided shockwave lithotripsy D&C FAMILY HISTORY: Noncontributory. SOCIAL HISTORY: Nonsmoker. Denies alcohol or drugs. REVIEW OF SYSTEMS: Otherwise negative. PHYSICAL EXAMINATION: VITAL SIGNS: Please see below. GENERAL APPEARANCE: Appears well. Comfortable at rest. HEENT: No scleral icterus. RESPIRATORY: Normal breathing at rest. CARDIOVASCULAR: Normal rate. ABDOMEN: Soft nontender. No pulsatile mass palpable. EXTREMITIES: Right lower extremity: Toes appear red, shiny and swollen like sausage digits. No tenderness. There is no edema at the ankle. Leg warm to touch. No gangrene. Motor 5 out of 5. Sensation intact. Femoral pulses difficult to palpate. Popliteal pulse, DP and PT all difficult to palpate. Left lower extremity: No edema. No toe redness or swelling. No tenderness. Color normal, temperature normal. No gangrene. Pulses femoral, popliteal, DP and PT, difficult to palpate. Motor 5 out of 5. Sensation intact. NEUROLOGICAL: Alert and oriented. PSYCHIATRIC: Appropriate to circumstance. LABORATORY DATA: 05/03/2020 hemoglobin 13.7 hematocrit 41.2 WBC 8.3 platelets 174. 04/26/2020 sodium 140 potassium 4.0 BUN 23 creatinine 0.85 GFR greater than 60 hemoglobin A1c 7.5 LDL 74 IMAGING: I personally reviewed the bilateral lower extremity arterial ultrasound performed May 2020. Right common femoral, SFA, popliteal, posterior tibial and anterior tibial arteries are patent but all with abnormal monophasic flow. Left lower extremity: Patent left common femoral, proximal SFA with biphasic flow. Patent SFA, profunda, popliteal, posterior tibial and anterior tibial arteries with monophasic flow. ASSESSMENT/PLAN: 84-year-old diabetic, hypertensive female referred for abnormal arterial ultrasound. I would like more information about this patient's inflow, starting at the aortic bifurcation, especially given difficulty feeling bilateral femoral pulses and uniformity of findings in the lower extremities. I've ordered a CTA abdomen pelvis with bilateral lower extremity runoff for this information. We will contact the patient once the study is done and evaluated. I spent 45 minutes reviewing patient's records, imaging and in consultation with the patient. Thank you for this referral. Cc Dr. Napoles Allergies Coded Allergies: MS - PIPE Inhibitors (Unverified Allergy, Severe, COUGH, 01/31/17) MS - Pioglitazone (Unverified Adverse Reaction, Intermediate, EDEMA, 01/31/17) MS - Raloxifene (Unverified Adverse Reaction, Intermediate, INTOLERABLE HOT FLASHES, 01/31/17) MS - Metoclopramide (Unverified Adverse Reaction, Unknown, DIARRHEA, 01/31/17) Home Medications Scheduled Aspirin (Aspirin), 81 MG PO DAILY, (Reported) Bisoprolol/Hydrochlorothiazide (Bisoprolol-Hctz 5-6.25 mg Tab), 1 TAB PO DAILY, (Reported) Cholecalciferol (Vitamin D3) (Vitamin D3), 5,000 UNIT PO 3XW, (Reported) Glimepiride (Glimepiride), 2 MG PO BID, (Reported) Lactobacillus Acidophilus (Probiotic), 1 CAP PO DAILY, (Reported) Losartan Potassium (Losartan Potassium), 50 MG PO DAILY, (Reported) Melatonin (Melatonin), 5 MG PO QHS, (Reported) Metformin HCl (Metformin HCl), 1,000 MG PO BID, (Reported) Pravastatin Sodium (Pravastatin Sodium), 40 MG PO DAILY, (Reported) VS, I&O, 24H, Fishbone Vital Signs/I&O Vital Signs Date Time Temp Pulse Resp B/P (MAP) Pulse Ox O2 Delivery O2 Flow Rate FiO2 06/28/20 14:20 97.8 64 18 142/78 (99) 99 Room Air KEDAR ESCOBAR MD June 29, 2020 13:00
== END ==
LOC: M IRPOV 14:08
PROVIDERS: ATTEND Radiology Diagnostic Radiology
DX: R93.5 Abnormal findings on diagnostic imaging of other abdominal regions, including retroperitoneum (principal); E11.59 Type 2 diabetes mellitus with other circulatory complications; I10 Essential (primary) hypertension; E53.8 Deficiency of other specified B group vitamins; E78.5 Hyperlipidemia, unspecified; K21.9 Gastro-esophageal reflux disease without esophagitis; K44.9 Diaphragmatic hernia without obstruction or gangrene; K76.0 Fatty (change of) liver, not elsewhere classified; M06.9 Rheumatoid arthritis, unspecified; Z79.82 Long term (current) use of aspirin; Z79.890 Hormone replacement therapy; Z79.899 Other long term (current) drug therapy; Z86.010 Personal history of colon polyps; Z87.891 Personal history of nicotine dependence

== ENCOUNTER → 2020-07-11 | Outpatient (CLI) | payer MEDICARE ==
[2020-07-11 12:53] LABS: BLOOD UREA NITROGEN 20 MG/DL (7-18); CALCIUM LEVEL 9.3 MG/DL (8.8-10.2); CARBON DIOXIDE LEVEL 28 MEQ/L (21-32); CHLORIDE LEVEL 104 MEQ/L (98-107); CREATININE FOR GFR 0.89 MG/DL (0.55-1.30); GLOMERULAR FILTRATION RATE > 60.0 (>32); GLUCOSE, FASTING 201 MG/DL (70-100); POTASSIUM SERUM 4.1 MEQ/L (3.5-5.1); SODIUM LEVEL 140 MEQ/L (136-145)
== END ==
LOC: M WUC 08:53
PROVIDERS: ATTEND Radiology Diagnostic Radiology
DX: Z00.00 Encounter for general adult medical examination without abnormal findings (principal)

== ENCOUNTER → 2020-07-15 | Outpatient (CLI) | payer MEDICARE ==
[~2020-07-15] MED LIST changes: +ISOVUE-370 76% 100ML VIAL As Ordered ONE
--- NOTE | 2020-07-22 03:23 | REP ---
INDICATION: PAD COMPARISON: None TECHNIQUE: Axial contrast-enhanced images from the lung bases through the bilateral lower extremities using angiographic technique including coronal and sagittal reformations, MIP reconstructions, and 3D volume rendered angiogram images. 100 cc Isovue 370 intravenous contrast material administered without complication. This CT examination was performed using the following dose reduction techniques: Automated exposure control, adjustment of mA and/or kv according to the patient's size, and use of iterative reconstruction technique. FINDINGS: Lung bases demonstrate chronic emphysematous changes and scattered scarring. Calcific atherosclerotic changes of the mitral valve noted thought cardiomegaly and without evidence for pericardial effusion. Abdominal aorta and branch vessels demonstrate significant scattered partially calcified atheromatous plaquing including celiac axis/splenic arteries, portions of the superior mesenteric artery, origins of the bilateral renal arteries and also involving the bilateral iliac arteries with findings to suggest elements of stenosis through the common iliac arteries (right greater than left). Right lower extremity demonstrates significant partially calcified atherosclerotic narrowing/stenosis through the common femoral and superficial femoral artery with very minimal detectable flow to the level of the popliteal artery which also demonstrates significant narrowing and decreased flow but some element of perfusion through the trifurcation to the level of the mid calf. Distal to the mid calf, vascular calcifications outweigh perceptible flow by CT evaluation although some flow is suggested within the anterior and posterior tibial arteries. Left lower extremity demonstrates significant partially calcified atherosclerotic narrowing/stenosis through the common femoral and superficial femoral artery where significant calcified plaquing outweigh perceptible flow by CT suggesting significant stenosis. There is some element of reconstitution at the level of the popliteal artery which also demonstrates significant atherosclerotic changes and decreased flow through the trifurcation where minimal flow is detectable through the posterior tibial and peroneal arteries only to the mid calf level. Distal to the mid calf, vascular calcifications outweigh perceptible flow by CT evaluation although some flow is suggested within the posterior tibial artery. Liver, spleen, pancreas, and bilateral adrenal glands are relatively normal for arterial phase evaluation. Evidence for prior cholecystectomy. The kidneys demonstrate chronic age-related atrophic changes. The left kidney includes 2 cm cyst along with 2 calculi in the renal pelvis measuring 12-14 mm each. The enteric system is without obstruction or acute inflammatory process. Normal terminal ileum and appendix identified in the right lower quadrant. Colonic and sigmoid diverticulosis noted without acute diverticulitis. Pelvis demonstrates normal bladder and age-appropriate uterus/adnexa. No ascites. No free air. No obvious adenopathy. Musculoskeletal structures are intact. IMPRESSION: 1. Extensive atherosclerotic disease with significantly decreased flow to the bilateral lower extremities. Evaluation is significantly hampered due to extensive vascular calcifications which outweigh perceptible flow suggesting multiple areas of narrowing and stenosis. No obvious discrete focal area of occlusion is identified through the bilateral lower extremities. 2. Abdominopelvic findings as described above including non-obstructing left nephroliths, left renal cyst, and diverticulosis. <Electronically signed by Jamie Haider > 07/22/20 0199
== END ==
LOC: M RAD 08:14
PROVIDERS: ATTEND Radiology Diagnostic Radiology
DX: I73.9 Peripheral vascular disease, unspecified (principal)
CPT/HCPCS: 75635; Q9967

== ENCOUNTER → 2020-08-02 | Outpatient (CLI) | payer MEDICARE ==
[~2020-08-02] MED LIST changes: -ISOVUE-370 76% 100ML VIAL As Ordered ONE
[2020-08-02 12:07] LABS: BLOOD UREA NITROGEN 18 MG/DL (7-18); CALCIUM LEVEL 9.4 MG/DL (8.8-10.2); CARBON DIOXIDE LEVEL 28 MEQ/L (21-32); CHLORIDE LEVEL 106 MEQ/L (98-107); CREATININE FOR GFR 0.86 MG/DL (0.55-1.30); GLOMERULAR FILTRATION RATE > 60.0 (>32); GLUCOSE, FASTING 135 MG/DL (70-100); POTASSIUM SERUM 3.9 MEQ/L (3.5-5.1); SODIUM LEVEL 141 MEQ/L (136-145)
[2020-08-02 12:08] LABS: HEMOGLOBIN A1c 7.2 %
== END ==
LOC: M WUC 09:06
PROVIDERS: ATTEND Family Medicine
DX: E11.618 Type 2 diabetes mellitus with other diabetic arthropathy (principal)

== ENCOUNTER → 2020-09-19 | Outpatient (REF) | payer MEDICARE ==
[2020-09-19 17:36] LABS: CPK CREATINE PHOSPHOKINASE 88 U/L (26-192); IRON (FE) 85 UG/DL (50-170); MAGNESIUM LEVEL 1.9 MG/DL (1.8-2.4); PHOSPHORUS LEVEL 3.6 MG/DL (2.5-4.9)
[2020-09-19 17:41] LABS: TOTAL 25(OH) VITAMIN D 40.1 NG/ML (30.0-100.0)
[2020-09-19 17:46] LABS: VITAMIN B12 LEVEL > 2000 PG/ML (247-911)
== END ==
LOC: M SFHCRHEU 14:26
PROVIDERS: ATTEND Internal Medicine
DX: M79.10 Myalgia, unspecified site (principal); M25.559 Pain in unspecified hip; Z79.899 Other long term (current) drug therapy
CPT/HCPCS: 82306; 82550; 82607; 83540; 83735; 84100; G0463

== ENCOUNTER → 2020-09-20 | Outpatient (CLI) | payer MEDICARE ==
--- NOTE | 2020-09-20 14:43 | REP ---
INDICATION: HIP PAIN. COMPARISON: KUB of 10/08/2012 TECHNIQUE: AP pelvis and bilateral AP frog-lateral view hip FINDINGS: AP pelvis: There has been no significant change compared to the prior AP pelvis seen in limited fashion on the KUB. There is no acute fracture, dislocation, or subluxation. There are chronic changes status quo. Right hip: There is mild rather symmetric appearing hip joint space narrowing without prominent marginal osteophytosis, buttressing, fracture, or dislocation. Left hip: There is mild rather symmetric appearing hip joint space narrowing without prominent marginal osteophytosis, buttressing, fracture, or dislocation. IMPRESSION: Chronic changes as described above. <Electronically signed by Luis Lanier > 09/20/20 [id number]
== END ==
LOC: M ADAMS 12:10
PROVIDERS: ATTEND Internal Medicine
DX: M25.559 Pain in unspecified hip (principal)
CPT/HCPCS: 73502; G0463

== ENCOUNTER → 2020-10-19 | Outpatient (CLI) | payer MEDICARE ==
--- NOTE | 2020-10-19 10:08 | DEXAMM ---
INDICATION: POST MENOPAUSAL. COMPARISON: 02/26/2007, 01/28/2001. TECHNIQUE: Bone density was measured using dual-energy x-ray absorptiometry (DEXA). FINDINGS: AP SPINE L1-L4 BMD 1.727 g/cm2 Young Adult T-Score 4.3 Age Matched Z-Score 6.2. LT FEMUR, TOTAL BMD 1.455 g/cm2 Young Adult T-Score 3.5 Age Matched Z-Score 5.8. LT NECK BMD 1.296 g/cm2 Young Adult T-Score 1.9 Age Matched Z-Score 4.2. RT FEMUR, TOTAL BMD 1.462 g/cm2 Young Adult T-Score 3.6 Age Matched Z-Score 5.9. RT NECK BMD 1.338 g/cm2 Young Adult T-Score 2.2 Age Matched Z-Score 4.5. IMPRESSION: There is normal bone density of the spine. There is normal bone density of the left hip. There is normal bone density of the right hip. The density of the spine has increased 14.9% since the initial exam on 01/28/2001. The density of the spine increased 7.1% since most recent exam on 02/26/2007. The density of the left hip has increased 2.9% since initial exam on 01/28/2001. The density of the left hip has increased 3.8% since most recent exam on 02/26/2007. The density of the right hip has increased 2.4% since the initial exam on 01/28/2001. The density of the right hip has increased 1.6% since the most recent exam on 02/26/2007. FOLLOW-UP: Recommendation for the next bone density exam: 5 years. <Electronically signed by Maninder Jones > 10/19/20 1005
== END ==
LOC: M WHC 09:20
PROVIDERS: ATTEND Internal Medicine
DX: Z78.0 Asymptomatic menopausal state (principal)

== ENCOUNTER → 2020-11-08 | Outpatient (CLI) | payer MEDICARE ==
[2020-11-08 10:26] LABS: HEMOGLOBIN A1c 6.7 %
[2020-11-08 10:42] LABS: ALBUMIN 3.3 GM/DL (3.2-5.2); ALT/SGPT 15 U/L (12-78); BILIRUBIN,TOTAL 0.5 MG/DL (0.2-1.0); BLOOD UREA NITROGEN 24 MG/DL (7-18); CALCIUM LEVEL 9.4 MG/DL (8.8-10.2); CARBON DIOXIDE LEVEL 28 MEQ/L (21-32); CHLORIDE LEVEL 109 MEQ/L (98-107); CHOLESTEROL LEVEL 163 MG/DL (<200); CHOLESTEROL RISK RATIO 2.762 (<5); CREATININE FOR GFR 0.89 MG/DL (0.55-1.30); GLOMERULAR FILTRATION RATE > 60.0 (>32); GLUCOSE, FASTING 85 MG/DL (70-100); HDL CHOLESTEROL 59 MG/DL (>40); LDL CHOLESTEROL 77 MG/DL (<100); NON-HDL-C 104 MG/DL; POTASSIUM SERUM 4.3 MEQ/L (3.5-5.1); SODIUM LEVEL 144 MEQ/L (136-145); TOTAL PROTEIN 6.8 GM/DL (6.4-8.2); TRIGLYCERIDES LEVEL 134 MG/DL (<150)
== END ==
LOC: M WUC 08:14
PROVIDERS: ATTEND Family Medicine
DX: E78.2 Mixed hyperlipidemia (principal); E11.618 Type 2 diabetes mellitus with other diabetic arthropathy; I11.9 Hypertensive heart disease without heart failure

== ENCOUNTER → 2021-01-19 | Outpatient (CLI) | payer MEDICARE ==
[~2021-01-19] MED LIST changes: +BISO1TAB18 PO; -BISO5TAB2 PO; +LOSA50TA28 PO; -LOSA50TA88 PO
== END ==
LOC: M WUC 15:00
PROVIDERS: ATTEND Podiatrist Foot & Ankle Surgery
DX: M10.071 Idiopathic gout, right ankle and foot (principal)

== ENCOUNTER → 2021-02-08 | Outpatient (CLI) | payer MEDICARE ==
[~2021-02-08] MED LIST changes: -BISO1TAB18 PO; +BISO5TAB2 PO; -LOSA50TA28 PO; +LOSA50TA88 PO
[2021-02-08 11:41] LABS: HEMATOCRIT 37.4 % (36.0-47.0); HEMOGLOBIN 12.2 g/dl (12.0-15.5); MEAN CORPUSCULAR HEMOGLOBIN 31.5 pg (27.0-33.0); MEAN CORPUSCULAR HGB CONC 32.6 g/dl (32.0-36.5); MEAN CORPUSCULAR VOLUME 96.6 fl (80.0-96.0); PLATELET COUNT, AUTOMATED 171 10^3/uL (150-450); RED BLOOD COUNT 3.87 10^6/uL (4.00-5.40); WHITE BLOOD COUNT 7.7 10^3/uL (4.0-10.0)
[2021-02-08 11:59] LABS: HEMOGLOBIN A1c 7.2 %
[2021-02-08 12:09] LABS: ALBUMIN 3.5 GM/DL (3.2-5.2); BILIRUBIN,TOTAL 0.3 MG/DL (0.2-1.0); CALCIUM LEVEL 9.3 MG/DL (8.8-10.2); CHOLESTEROL RISK RATIO 2.492 (<5); CREATININE FOR GFR 1.04 MG/DL (0.55-1.30); GLOMERULAR FILTRATION RATE 53.6 (>32); POTASSIUM SERUM 4.5 MEQ/L (3.5-5.1)
== END ==
LOC: M WUC 09:09
PROVIDERS: ATTEND Family Medicine
DX: I11.9 Hypertensive heart disease without heart failure (principal); E11.618 Type 2 diabetes mellitus with other diabetic arthropathy; E78.2 Mixed hyperlipidemia; I73.9 Peripheral vascular disease, unspecified; E53.8 Deficiency of other specified B group vitamins

== ENCOUNTER → 2021-02-14 | Outpatient (CLI) | payer MEDICARE ==
[~2021-02-14] MED LIST changes: +BISO1TAB18 PO; -BISO5TAB2 PO; +LOSA50TA28 PO; -LOSA50TA88 PO
== END ==
LOC: M ADAMS 12:31
PROVIDERS: ATTEND Physician Assistant
DX: M19.071 Primary osteoarthritis, right ankle and foot (principal); L97.511 Non-pressure chronic ulcer of other part of right foot limited to breakdown of skin
CPT/HCPCS: 73630; G0463

== ENCOUNTER → 2021-03-22 | Outpatient (REF) | payer MEDICARE | LOC: M SFHCADAM 09:56 | PROVIDERS: ATTEND Family Medicine | DX: E11.621 Type 2 diabetes mellitus with foot ulcer (principal); L97.509 Non-pressure chronic ulcer of other part of unspecified foot with unspecified severity ==

== ENCOUNTER → 2021-04-17 | Outpatient (CLI) | payer MEDICARE | LOC: M LABSMTC 09:57 | PROVIDERS: ATTEND Surgery Vascular Surgery | DX: Z11.52 Encounter for screening for COVID-19 (principal) ==

== ENCOUNTER → 2021-04-17 | Outpatient (CLI) | payer MEDICARE ==
[2021-04-17 12:36] LABS: BASO % 0.4 % (0.0-1.0); EOS # 0.3 10^3/uL (0.0-0.5); EOS % 2.2 % (0.0-3.0); HEMATOCRIT 34.7 % (36.0-47.0); LYMPH % 26.1 % (24.0-44.0); MEAN CORPUSCULAR HEMOGLOBIN 30.3 pg (27.0-33.0); MEAN CORPUSCULAR HGB CONC 31.7 g/dl (32.0-36.5); MEAN CORPUSCULAR VOLUME 95.6 fl (80.0-96.0); MONO % 8.3 % (2.0-8.0); NEUTROPHILS # 7.1 10^3/uL (1.5-8.5); NEUTROPHILS % 62.6 % (36.0-66.0); PLATELET COUNT, AUTOMATED 237 10^3/uL (150-450); RED BLOOD COUNT 3.63 10^6/uL (4.00-5.40); WHITE BLOOD COUNT 11.4 10^3/uL (4.0-10.0)
[2021-04-17 12:49] LABS: INR 1.04
[2021-04-17 12:50] LABS: PARTIAL THROMBOPLASTIN TIME 27.7 SECONDS (25.9-37.0)
[2021-04-17 13:12] LABS: CALCIUM LEVEL 9.3 MG/DL (8.8-10.2); CREATININE FOR GFR 1.01 MG/DL (0.55-1.30); GLOMERULAR FILTRATION RATE 55.5 (>32); POTASSIUM SERUM 4.5 MEQ/L (3.5-5.1)
== END ==
LOC: M WUC 10:08
DX: Z01.818 Encounter for other preprocedural examination (principal); I70.221 Atherosclerosis of native arteries of extremities with rest pain, right leg; D69.8 Other specified hemorrhagic conditions; Z11.52 Encounter for screening for COVID-19
CPT/HCPCS: 36415; 80048; 85025; 85610; 85730; U0003

== ENCOUNTER → 2021-05-10 | Outpatient (REF) | payer MEDICARE ==
[2021-05-10 13:00] LABS: HEMATOCRIT 34.1 % (36.0-47.0); MEAN CORPUSCULAR HEMOGLOBIN 30.2 pg (27.0-33.0); MEAN CORPUSCULAR HGB CONC 32.3 g/dl (32.0-36.5); MEAN CORPUSCULAR VOLUME 93.7 fl (80.0-96.0); PLATELET COUNT, AUTOMATED 230 10^3/uL (150-450); RED BLOOD COUNT 3.64 10^6/uL (4.00-5.40); WHITE BLOOD COUNT 9.9 10^3/uL (4.0-10.0)
[2021-05-10 13:59] LABS: ALBUMIN 3.2 GM/DL (3.2-5.2); ALT/SGPT 16 U/L (12-78); BILIRUBIN,TOTAL 0.5 MG/DL (0.2-1.0); BLOOD UREA NITROGEN 22 MG/DL (7-18); CALCIUM LEVEL 9.1 MG/DL (8.8-10.2); CARBON DIOXIDE LEVEL 25 MEQ/L (21-32); CHLORIDE LEVEL 105 MEQ/L (98-107); CHOLESTEROL LEVEL 145 MG/DL (<200); CHOLESTEROL RISK RATIO 2.589 (<5); CREATININE FOR GFR 0.94 MG/DL (0.55-1.30); GLOMERULAR FILTRATION RATE > 60.0 (>32); GLUCOSE, FASTING 186 MG/DL (70-100); HDL CHOLESTEROL 56 MG/DL (>40); LDL CHOLESTEROL 64 MG/DL (<100); NON-HDL-C 89 MG/DL; POTASSIUM SERUM 4.3 MEQ/L (3.5-5.1); SODIUM LEVEL 139 MEQ/L (136-145); TOTAL PROTEIN 6.7 GM/DL (6.4-8.2); TRIGLYCERIDES LEVEL 125 MG/DL (<150)
[2021-05-10 18:35] LABS: HEMOGLOBIN A1c 7.5 %
== END ==
LOC: M SFHCADAM 10:22
PROVIDERS: ATTEND Family Medicine
DX: I11.9 Hypertensive heart disease without heart failure (principal); E11.618 Type 2 diabetes mellitus with other diabetic arthropathy; E78.2 Mixed hyperlipidemia; I73.9 Peripheral vascular disease, unspecified; E53.8 Deficiency of other specified B group vitamins

== ENCOUNTER → 2021-06-13 | Outpatient (CLI) | payer MEDICARE ==
[2021-06-13 13:27] LABS: HEMATOCRIT 36.5 % (36.0-47.0); HEMOGLOBIN 11.8 g/dl (12.0-15.5); MEAN CORPUSCULAR HEMOGLOBIN 31.1 pg (27.0-33.0); MEAN CORPUSCULAR HGB CONC 32.3 g/dl (32.0-36.5); MEAN CORPUSCULAR VOLUME 96.1 fl (80.0-96.0); PLATELET COUNT, AUTOMATED 194 10^3/uL (150-450); WHITE BLOOD COUNT 10.9 10^3/uL (4.0-10.0)
[2021-06-13 13:59] LABS: HEMOGLOBIN A1c 6.7 %
[2021-06-13 14:01] LABS: ALBUMIN 3.3 GM/DL (3.2-5.2); ALT/SGPT 12 U/L (12-78); BILIRUBIN,TOTAL 0.5 MG/DL (0.2-1.0); BLOOD UREA NITROGEN 19 MG/DL (7-18); CALCIUM LEVEL 9.8 MG/DL (8.8-10.2); CARBON DIOXIDE LEVEL 27 MEQ/L (21-32); CHLORIDE LEVEL 106 MEQ/L (98-107); CREATININE FOR GFR 0.85 MG/DL (0.55-1.30); FERRITIN 148 NG/ML (8-252); GLOMERULAR FILTRATION RATE > 60.0 (>32); GLUCOSE, FASTING 209 MG/DL (70-100); IRON (FE) 69 UG/DL (50-170); PERCENT SATURATION 22.4 % (13.2-45.0); POTASSIUM SERUM 4.3 MEQ/L (3.5-5.1); SODIUM LEVEL 142 MEQ/L (136-145); TOTAL IRON BINDING CAPACITY 308 UG/DL (250-450); TOTAL PROTEIN 6.7 GM/DL (6.4-8.2)
== END ==
LOC: M WUC 10:56
PROVIDERS: ATTEND Family Medicine
DX: D64.9 Anemia, unspecified (principal); E11.618 Type 2 diabetes mellitus with other diabetic arthropathy

== ENCOUNTER → 2021-06-21 | Outpatient (REF) | payer MEDICARE | LOC: M SFHCWOUN 16:16 | PROVIDERS: ATTEND Surgery | DX: I70.235 Atherosclerosis of native arteries of right leg with ulceration of other part of foot (principal); L97.512 Non-pressure chronic ulcer of other part of right foot with fat layer exposed ==

== ENCOUNTER → 2021-08-29 | Outpatient (REF) | payer MEDICARE ==
[2021-08-29 13:55] LABS: HEMATOCRIT 35.7 % (36.0-47.0); HEMOGLOBIN 11.5 g/dl (12.0-15.5); MEAN CORPUSCULAR HGB CONC 32.2 g/dl (32.0-36.5); MEAN CORPUSCULAR VOLUME 96.2 fl (80.0-96.0); PLATELET COUNT, AUTOMATED 212 10^3/uL (150-450); RED BLOOD COUNT 3.71 10^6/uL (4.00-5.40); WHITE BLOOD COUNT 12.6 10^3/uL (4.0-10.0)
[2021-08-29 14:12] LABS: ALBUMIN 3.4 GM/DL (3.2-5.2); BILIRUBIN,TOTAL 0.4 MG/DL (0.2-1.0); CALCIUM LEVEL 9.7 MG/DL (8.8-10.2); GLOMERULAR FILTRATION RATE 56.1 (>32); POTASSIUM SERUM 4.6 MEQ/L (3.5-5.1)
[2021-08-29 14:31] LABS: APPEARANCE, URINE TURBID (CLEAR); BACTERIA, URINE AUTO 1+ (NEGATIVE); BILIRUBIN, URINE AUTO NEGATIVE (NEGATIVE); BLOOD, URINE BLOOD 1+ (NEGATIVE); COLOR, URINE YELLOW (YELLOW); GLUCOSE, URINE (UA) AUTO NEGATIVE (NEGATIVE); KETONE, URINE AUTO NEGATIVE (NEGATIVE); LEUKOCYTE ESTERASE, URINE AUTO 3+ (NEGATIVE); MUCUS, URINE SMALL (NEGATIVE); NITRITE, URINE AUTO NEGATIVE (NEGATIVE); PROTEIN, URINE AUTO 2+ mg/dL (NEGATIVE); RBC, URINE AUTO 29 /HPF (0-3); SPECIFIC GRAVITY URINE AUTO 1.016 (1.002-1.035); SQUAMOUS EPITHELIAL CELL UR AU 0 /HPF (0-6); TRANSITIONAL EPITHELIAL AUTO 2 /HPF; UROBILINOGEN, URINE AUTO 0.2 mg/dL (0.0-2.0); WBC, URINE AUTO TNTC /HPF (0-3)
[2021-08-29 14:48] LABS: HEMOGLOBIN A1c 7.2 %
== END ==
LOC: M SFHCADAM 10:59
PROVIDERS: ATTEND Family Medicine
DX: E11.621 Type 2 diabetes mellitus with foot ulcer (principal); E11.649 Type 2 diabetes mellitus with hypoglycemia without coma; D64.9 Anemia, unspecified; R35.0 Frequency of micturition

== ENCOUNTER → 2021-09-08 | Outpatient (REF) | payer MEDICARE ==
[2021-09-08 12:32] LABS: APPEARANCE, URINE CLOUDY (CLEAR); BACTERIA, URINE AUTO 1+ (NEGATIVE); BILIRUBIN, URINE AUTO NEGATIVE (NEGATIVE); BLOOD, URINE BLOOD 1+ (NEGATIVE); COLOR, URINE YELLOW (YELLOW); GLUCOSE, URINE (UA) AUTO NEGATIVE (NEGATIVE); GRANULAR CAST, URINE AUTO 2 /LPF; KETONE, URINE AUTO NEGATIVE (NEGATIVE); LEUKOCYTE ESTERASE, URINE AUTO 3+ (NEGATIVE); NITRITE, URINE AUTO NEGATIVE (NEGATIVE); PROTEIN, URINE AUTO 1+ mg/dL (NEGATIVE); RBC, URINE AUTO 8 /HPF (0-3); SPECIFIC GRAVITY URINE AUTO 1.011 (1.002-1.035); SQUAMOUS EPITHELIAL CELL UR AU 1 /HPF (0-6); UROBILINOGEN, URINE AUTO 0.2 mg/dL (0.0-2.0); WBC, URINE AUTO TNTC /HPF (0-3)
== END ==
LOC: M SFHCADAM 12:02
PROVIDERS: ATTEND Family Medicine
DX: R39.9 Unspecified symptoms and signs involving the genitourinary system (principal)

== ENCOUNTER → 2021-10-10 | Outpatient (REF) | payer MEDICARE ==
[2021-10-10 17:22] LABS: APPEARANCE, URINE MANUAL CLOUDY (CLEAR); COLOR, URINE MANUAL YELLOW (YELLOW)
[2021-10-10 17:24] LABS: BILIRUBIN, URINE MANUAL NEGATIVE (NEGATIVE); GLUCOSE, URINE (UA) MANUAL 1+(100 MG/DL) mg/dL (NEGATIVE); KETONE, URINE MANUAL NEGATIVE (NEGATIVE); PROTEIN, URINE MANUAL 1+ mg/dL (NEGATIVE); UROBILINOGEN, URINE MANUAL NORMAL (NORMAL)
[2021-10-10 17:25] LABS: BLOOD URINE MANUAL POSITIVE (NEGATIVE); LEUKOCYTE ESTERASE, URINE MAN POSITIVE (NEGATIVE); NITRITE, URINE MANUAL NEGATIVE (NEGATIVE)
[2021-10-10 17:56] LABS: SQUAMOUS EPITHELIAL CELL URINE SMALL AMOUNT /hpf (SMALL AMT); WBC, URINE 15-20 /hpf (0-3)
[2021-10-10 17:57] LABS: BACTERIA, URINE NONE SEEN; YEAST, URINE SMALL AMOUNT
[2021-10-10 19:18] LABS: HYALINE CAST, URINE NONE SEEN /lpf (0-1)
== END ==
LOC: M SMT 16:58
PROVIDERS: ATTEND Nurse Practitioner Women's Health
DX: R35.0 Frequency of micturition (principal)

== ENCOUNTER → 2021-10-19 | Outpatient (CLI) | payer MEDICARE ==
[2021-10-19 14:01] LABS: CALCIUM LEVEL 8.9 MG/DL (8.8-10.2); CREATININE FOR GFR 1.26 MG/DL (0.55-1.30); GLOMERULAR FILTRATION RATE 42.9 (>32); POTASSIUM SERUM 3.9 MEQ/L (3.5-5.1)
== END ==
LOC: M WUC 10:15
PROVIDERS: ATTEND Nurse Practitioner Women's Health
DX: R31.29 Other microscopic hematuria (principal)

== ENCOUNTER → 2021-10-24 | Outpatient (CLI) | payer MEDICARE ==
[~2021-10-24] MED LIST changes: +ISOVUE-370 76% 100ML VIAL As Ordered ONE
== END ==
LOC: M RAD 08:32
PROVIDERS: ATTEND Nurse Practitioner Women's Health
DX: R31.0 Gross hematuria (principal)
CPT/HCPCS: 74178; Q9967

== ENCOUNTER → 2021-11-08 | Outpatient (CLI) | payer MEDICARE ==
[~2021-11-08] MED LIST changes: -ISOVUE-370 76% 100ML VIAL As Ordered ONE
== END ==
LOC: M PLAIMG 12:57
PROVIDERS: ATTEND Urology
DX: R91.8 Other nonspecific abnormal finding of lung field (principal); D49.4 Neoplasm of unspecified behavior of bladder

== ENCOUNTER → 2021-11-24 | Outpatient (CLI) | payer MEDICARE | LOC: M ADAMS 11:18 | PROVIDERS: ATTEND Urology | DX: D49.4 Neoplasm of unspecified behavior of bladder (principal) ==

== ENCOUNTER → 2021-11-24 | Outpatient (REF) | payer MEDICARE ==
[2021-11-24 12:54] LABS: HEMATOCRIT 35.5 % (36.0-47.0); HEMOGLOBIN 11.6 g/dl (12.0-15.5); MEAN CORPUSCULAR HEMOGLOBIN 31.4 pg (27.0-33.0); MEAN CORPUSCULAR HGB CONC 32.7 g/dl (32.0-36.5); MEAN CORPUSCULAR VOLUME 96.2 fl (80.0-96.0); PLATELET COUNT, AUTOMATED 195 10^3/uL (150-450); RED BLOOD COUNT 3.69 10^6/uL (4.00-5.40); WHITE BLOOD COUNT 10.1 10^3/uL (4.0-10.0)
[2021-11-24 13:06] LABS: INR 0.99; PROTHROMBIN TIME 13.3 SECONDS (12.5-14.5)
[2021-11-24 13:42] LABS: ALT/SGPT 12 U/L (12-78); BILIRUBIN,TOTAL 0.5 MG/DL (0.2-1.0); BLOOD UREA NITROGEN 18 MG/DL (7-18); CALCIUM LEVEL 9.3 MG/DL (8.8-10.2); CARBON DIOXIDE LEVEL 29 MEQ/L (21-32); CHLORIDE LEVEL 105 MEQ/L (98-107); CHOLESTEROL LEVEL 168 MG/DL (<200); CREATININE FOR GFR 0.92 MG/DL (0.55-1.30); GLOMERULAR FILTRATION RATE > 60.0 (>32); GLUCOSE, FASTING 190 MG/DL (70-100); POTASSIUM SERUM 3.6 MEQ/L (3.5-5.1); SODIUM LEVEL 140 MEQ/L (136-145); TRIGLYCERIDES LEVEL 181 MG/DL (<150)
[2021-11-24 13:43] LABS: ALBUMIN 3.4 GM/DL (3.2-5.2); CHOLESTEROL RISK RATIO 2.896 (<5); FREE T4 1.24 NG/DL (0.76-1.46); HDL CHOLESTEROL 58 MG/DL (>40); LDL CHOLESTEROL 74 MG/DL (<100); NON-HDL-C 110 MG/DL; TOTAL PROTEIN 7.2 GM/DL (6.4-8.2)
[2021-11-24 18:48] LABS: HEMOGLOBIN A1c 7.1 %
== END ==
LOC: M SFHCADAM 10:51
PROVIDERS: ATTEND Family Medicine
DX: D49.4 Neoplasm of unspecified behavior of bladder (principal); E11.618 Type 2 diabetes mellitus with other diabetic arthropathy; E11.621 Type 2 diabetes mellitus with foot ulcer; E78.2 Mixed hyperlipidemia

== ENCOUNTER → 2021-11-26 | Outpatient (CLI) | payer MEDICARE | LOC: M LABSMTC 11:28 | PROVIDERS: ATTEND Anesthesiology | DX: Z01.818 Encounter for other preprocedural examination (principal); Z11.52 Encounter for screening for COVID-19 ==

== ENCOUNTER → 2021-12-13 | Outpatient (CLI) | payer MEDICARE ==
[~2021-12-13] MED LIST changes: +ACET-897 PO; +BASA100I SC; +CLOP75TA2 PO; +META0.52 PO; +OXYB5TAB10 PO; +PROBCAP14 PO; +VITA100093 PO
== END ==
LOC: M CARPUL 15:01
PROVIDERS: ATTEND Internal Medicine Cardiovascular Disease
DX: Z01.818 Encounter for other preprocedural examination (principal)

== ENCOUNTER → 2022-01-03 | Outpatient (CLI) | payer MEDICARE ==
[~2022-01-03] MED LIST changes: +COLA100C5 PO
== END ==
LOC: M LABSMTC 11:11
PROVIDERS: ATTEND Anesthesiology
DX: Z01.812 Encounter for preprocedural laboratory examination (principal); Z20.822 Contact with and (suspected) exposure to COVID-19

== ENCOUNTER 2022-01-08 10:50 | Day surgery (SDC) | payer MEDICARE ==
[~2022-01-08] VITALS: Ht 157.5 cm; Wt 64.9 kg
[~2022-01-08 10:50] MED LIST changes: +ceFAZolin SOD 2 GM in IV 1 EA IV ONE
[2022-01-08] MEDS ORDERED: LR 1,000 ML IV SCH (11:00)
[2022-01-08] MEDS ORDERED: propofoL 200 MG/20 ML VIAL As Ordered ONE (13:19)
[2022-01-08] MEDS ORDERED: ROCURONIUM BROMIDE 50MG/5ML VIAL As Ordered ONE (13:19)
[2022-01-08] MEDS ORDERED: LIDOCAINE 2% 100MG/5ML SDV (FOR ANES.) As Ordered ONE (13:19)
[2022-01-08] MEDS ORDERED: MIDAZOLAM INJ 2MG/2ML VIAL As Ordered ONE (13:20)
[2022-01-08] MEDS ORDERED: fentaNYL 100 MCG/2 ML INJECTION As Ordered ONE (13:20)
[2022-01-08] MEDS ORDERED: ONDANSETRON 4MG 2ML VIAL As Ordered ONE (13:25)
[2022-01-08] MEDS ORDERED: ISOVUE-300 61% 50ML VIAL As Ordered ONE (13:43)
[2022-01-08] MEDS ORDERED: SUGAMMADEX SODIUM 500 MG/5 ML VIAL (BRIDION) As Ordered ONE (15:10)
[2022-01-08] MEDS ORDERED: ONDANSETRON 4MG 2ML VIAL IV PRN (15:15)
[2022-01-08] MEDS ORDERED: OXYB5TAB10 PO (15:37)
[2022-01-08] MEDS ORDERED: MACR100C43 PO (15:37)
[2022-01-08] MEDS ORDERED: PYRI1TAB5 PO (15:37)
[2022-01-08] MEDS: fentaNYL 100 MCG/2 ML INJECTION IV PRN ×4 (16:00→16:40)
[2022-01-08] MEDS: oxyCODONE 5MG TAB PO PRN ×2 (16:00→16:28)
[2022-01-08] MEDS ORDERED: oxyBUTYnin 5 MG TAB PO PRN (16:10)
[2022-01-08] MEDS ORDERED: PHENAZOPYRIDINE 100 MG TAB PO PRN (16:10)
[2022-01-08 17:27] VITALS: BP 149/67
[2022-01-30] MEDS ORDERED: CLOP75TA2 PO (11:02)
[2022-01-30] MEDS ORDERED: ECOT81TA5 PO (11:07)
[2022-01-30] MEDS ORDERED: PHEN1TAB73 (11:07)
== END 2022-01-08 18:03 | disposition home or self-care (01) ==
LOC: M SDC 10:50
PROVIDERS: ATTEND Urology
DX: N32.9 Bladder disorder, unspecified (principal); K57.92 Diverticulitis of intestine, part unspecified, without perforation or abscess without bleeding; K74.60 Unspecified cirrhosis of liver; I10 Essential (primary) hypertension; E78.5 Hyperlipidemia, unspecified; E11.9 Type 2 diabetes mellitus without complications; I25.2 Old myocardial infarction; Z87.891 Personal history of nicotine dependence; Z79.02 Long term (current) use of antithrombotics/antiplatelets; Z79.899 Other long term (current) drug therapy; Z79.84 Long term (current) use of oral hypoglycemic drugs; R31.0 Gross hematuria; Z88.8 Allergy status to other drugs, medicaments and biological substances
CPT/HCPCS: 52204; 52332; 76000; 87088; 87186; 88108; 88305; C1769; C2617; J2405; Q9967

== ENCOUNTER → 2022-01-19 | Outpatient (CLI) | payer MEDICARE ==
[~2022-01-19] MED LIST changes: +ECOT81TA5 PO; +MACR100C43 PO; +PHEN1TAB73; +PYRI1TAB5 PO; -ceFAZolin SOD 2 GM in IV 1 EA IV ONE
[2022-01-19 17:41] LABS: WHITE BLOOD COUNT 12.8 10^3/uL (4.0-10.0)
[2022-01-19 17:42] LABS: HEMATOCRIT 32.7 % (36.0-47.0); HEMOGLOBIN 10.4 g/dl (12.0-15.5); MEAN CORPUSCULAR HEMOGLOBIN 31.1 pg (27.0-33.0); MEAN CORPUSCULAR HGB CONC 31.8 g/dl (32.0-36.5); MEAN CORPUSCULAR VOLUME 97.9 fl (80.0-96.0); PLATELET COUNT, AUTOMATED 304 10^3/uL (150-450); RED BLOOD COUNT 3.34 10^6/uL (4.00-5.40)
[2022-01-19 18:03] LABS: ALBUMIN 2.8 G/DL (3.2-5.2); BILIRUBIN,TOTAL 0.5 MG/DL (0.3-1.2); CALCIUM LEVEL 8.7 MG/DL (8.3-10.6); CREATININE FOR GFR 0.95 MG/DL (0.55-1.30); GLOMERULAR FILTRATION RATE 59.4 (>32); POTASSIUM SERUM 3.8 MMOL/L (3.5-5.1); TOTAL PROTEIN 6.8 G/DL (5.7-8.2)
== END ==
LOC: M PLALAB 14:38
PROVIDERS: ATTEND Urology
DX: R35.0 Frequency of micturition (principal)

== ENCOUNTER → 2022-01-31 | Outpatient (REF) | payer MEDICARE | LOC: M SMT 11:27 | PROVIDERS: ATTEND Urology | DX: N20.0 Calculus of kidney (principal) ==

== ENCOUNTER → 2022-02-07 | Outpatient (CLI) | payer MEDICARE | LOC: M LABSMTC 10:24 | PROVIDERS: ATTEND Anesthesiology | DX: Z01.818 Encounter for other preprocedural examination (principal); Z11.52 Encounter for screening for COVID-19 ==

== ENCOUNTER 2022-02-08 06:42 | Day surgery (SDC) | payer MEDICARE ==
[~2022-02-08] VITALS: Ht 157.5 cm; Wt 61.7 kg
[~2022-02-08 06:42] MED LIST changes: +FLUCONAZOLE 100 MG in IV 1 EA IV ONE; +UNRESOLVED CLARIFICATION ENTRY XX SCH; +ceFAZolin SOD 2 GM in IV 1 EA IV ONE
[2022-02-08] MEDS ORDERED: propofoL 200 MG/20 ML VIAL As Ordered ONE ×2 (07:57→09:08)
[2022-02-08] MEDS ORDERED: ONDANSETRON 4MG 2ML VIAL As Ordered ONE (07:58)
[2022-02-08] MEDS ORDERED: OXYB5TAB10 PO (07:59)
[2022-02-08] MEDS ORDERED: ACETAMINOPHEN 1000MG 100ML IV BAG As Ordered ONE (08:57)
[2022-02-08 09:26] VITALS: BP 141/63
== END 2022-02-08 10:31 | disposition home or self-care (01) ==
LOC: M SDC 06:42
PROVIDERS: ATTEND Urology
DX: N20.0 Calculus of kidney (principal); Z87.440 Personal history of urinary (tract) infections; I10 Essential (primary) hypertension; I25.2 Old myocardial infarction; E78.00 Pure hypercholesterolemia, unspecified; E11.9 Type 2 diabetes mellitus without complications; K76.0 Fatty (change of) liver, not elsewhere classified; D64.9 Anemia, unspecified; M06.9 Rheumatoid arthritis, unspecified; Z22.7 Latent tuberculosis; Z88.8 Allergy status to other drugs, medicaments and biological substances; Z79.899 Other long term (current) drug therapy; Z79.4 Long term (current) use of insulin; Z79.02 Long term (current) use of antithrombotics/antiplatelets; Z79.82 Long term (current) use of aspirin
CPT/HCPCS: 50590; 52310; 74018; J1100; J1450; J2405

== ENCOUNTER → 2022-02-21 | Outpatient (CLI) | payer MEDICARE ==
[~2022-02-21] MED LIST changes: -FLUCONAZOLE 100 MG in IV 1 EA IV ONE; -UNRESOLVED CLARIFICATION ENTRY XX SCH; -ceFAZolin SOD 2 GM in IV 1 EA IV ONE
== END ==
LOC: M PLAIMG 13:56
PROVIDERS: ATTEND Urology
DX: N20.0 Calculus of kidney (principal)

== ENCOUNTER → 2022-03-02 | Outpatient (REF) | payer MEDICARE ==
[2022-03-02 14:15] LABS: APPEARANCE, URINE MANUAL CLEAR (CLEAR); BILIRUBIN, URINE MANUAL 1+ (NEGATIVE); COLOR, URINE MANUAL YELLOW (YELLOW); GLUCOSE, URINE (UA) MANUAL NEGATIVE (NEGATIVE); KETONE, URINE MANUAL NEGATIVE (NEGATIVE); LEUKOCYTE ESTERASE, URINE MAN POSITIVE (NEGATIVE); NITRITE, URINE MANUAL NEGATIVE (NEGATIVE); PROTEIN, URINE MANUAL 1+ mg/dL (NEGATIVE); SPECIFIC GRAVITY,URINE MANUAL 1.015 (1.002-1.035); UROBILINOGEN, URINE MANUAL 1 MG mg/dl (NORMAL)
[2022-03-02 14:16] LABS: BLOOD URINE MANUAL POSITIVE (NEGATIVE)
[2022-03-02 14:34] LABS: BACTERIA, URINE SMALL AMOUNT; HYALINE CAST, URINE 0-1 /lpf (0-1); RBC, URINE NONE SEEN /hpf (0-3); SQUAMOUS EPITHELIAL CELL URINE SMALL AMOUNT /hpf (SMALL AMT); WBC, URINE 15-20 /hpf (0-3)
== END ==
LOC: M SMT 13:20
PROVIDERS: ATTEND Nurse Practitioner Women's Health
DX: N20.0 Calculus of kidney (principal)

== ENCOUNTER → 2022-03-23 | Outpatient (REF) | payer MEDICARE ==
[2022-03-23 22:00] LABS: HEMATOCRIT 35.4 % (36.0-47.0); MEAN CORPUSCULAR HEMOGLOBIN 30.8 pg (27.0-33.0); MEAN CORPUSCULAR HGB CONC 31.1 g/dl (32.0-36.5); MEAN CORPUSCULAR VOLUME 99.2 fl (80.0-96.0); PLATELET COUNT, AUTOMATED 177 10^3/uL (150-450); RED BLOOD COUNT 3.57 10^6/uL (4.00-5.40); WHITE BLOOD COUNT 9.8 10^3/uL (4.0-10.0)
[2022-03-23 22:07] LABS: C REACTIVE PROTEIN QUANTITATIV < 0.40 MG/DL (<1.0)
[2022-03-23 22:08] LABS: IRON (FE) 74 UG/DL (50-170); PERCENT SATURATION 22.8 % (13.2-45.0); TOTAL IRON BINDING CAPACITY 325 UG/DL (250-425)
[2022-03-23 22:12] LABS: ALBUMIN 3.2 G/DL (3.2-5.2); ALKALINE PHOSPHATASE 55 U/L (46-116); ALT/SGPT 10 U/L (7.0-40); AST/SGOT 18 U/L (<34); BILIRUBIN,TOTAL 0.5 MG/DL (0.3-1.2); BLOOD UREA NITROGEN 22 MG/DL (9-23); CALCIUM LEVEL 9.2 MG/DL (8.3-10.6); CARBON DIOXIDE LEVEL 25 MMOL/L (20-31); CHLORIDE LEVEL 103 MMOL/L (98-107); CHOLESTEROL LEVEL 184 MG/DL (<200); CHOLESTEROL RISK RATIO 3.04 (<5); CREATININE FOR GFR 0.86 MG/DL (0.55-1.30); FREE T4 1.31 NG/DL (0.89-1.76); GLOMERULAR FILTRATION RATE > 60.0 (>32); GLUCOSE, FASTING 255 MG/DL (74-106); HDL CHOLESTEROL 60.4 MG/DL (>40); LDL CHOLESTEROL 82.8 MG/DL (<100); NON-HDL-C 124 MG/DL; POTASSIUM SERUM 4.4 MMOL/L (3.5-5.1); SODIUM LEVEL 140 MMOL/L (136-145); THYROID STIMULATING HORMONE 1.049 uIU/ML (0.55-4.78); TOTAL PROTEIN 6.5 G/DL (5.7-8.2); TRIGLYCERIDES LEVEL 204 MG/DL (<150)
[2022-03-23 22:49] LABS: HEMOGLOBIN A1c 7.9 % (4.0-6.0)
== END ==
LOC: M SFHCADAM 14:14
PROVIDERS: ATTEND Family Medicine
DX: E11.618 Type 2 diabetes mellitus with other diabetic arthropathy (principal); E78.2 Mixed hyperlipidemia; D63.8 Anemia in other chronic diseases classified elsewhere; I11.9 Hypertensive heart disease without heart failure

== ENCOUNTER → 2022-05-21 | Outpatient (CLI) | payer MEDICARE | LOC: M PLAIMG 13:30 | PROVIDERS: ATTEND Nurse Practitioner Women's Health | DX: N20.0 Calculus of kidney (principal) ==

== ENCOUNTER → 2022-05-29 | Outpatient (CLI) | payer MEDICARE ==
[2022-05-29 16:14] LABS: APPEARANCE, URINE HAZY (CLEAR); BACTERIA, URINE AUTO NEGATIVE (NEGATIVE); BILIRUBIN, URINE AUTO NEGATIVE (NEGATIVE); BLOOD, URINE BLOOD 2+ (NEGATIVE); COLOR, URINE YELLOW (YELLOW); GLUCOSE, URINE (UA) AUTO NEGATIVE (NEGATIVE); KETONE, URINE AUTO NEGATIVE (NEGATIVE); LEUKOCYTE ESTERASE, URINE AUTO 2+ (NEGATIVE); NITRITE, URINE AUTO NEGATIVE (NEGATIVE); PROTEIN, URINE AUTO 1+ mg/dL (NEGATIVE); RBC, URINE AUTO 1 /HPF (0-3); SPECIFIC GRAVITY URINE AUTO 1.005 (1.002-1.035); SQUAMOUS EPITHELIAL CELL UR AU 0 /HPF (0-6); UROBILINOGEN, URINE AUTO 0.2 mg/dL (0.0-2.0); WBC, URINE AUTO 36 /HPF (0-3)
[2022-05-29 16:33] LABS: CALCIUM LEVEL 9.5 MG/DL (8.3-10.6); CREATININE FOR GFR 0.98 MG/DL (0.55-1.30); GLOMERULAR FILTRATION RATE 57.3 (>32); POTASSIUM SERUM 4.3 MMOL/L (3.5-5.1)
== END ==
LOC: M PLALAB 12:40
PROVIDERS: ATTEND Urology
DX: N20.0 Calculus of kidney (principal)

== ENCOUNTER → 2022-06-12 | Outpatient (CLI) | payer MEDICARE ==
[~2022-06-12] MED LIST changes: +ISOVUE-370 76% 100ML VIAL As Ordered ONE
== END ==
LOC: M RAD 14:32
PROVIDERS: ATTEND Urology
DX: R31.29 Other microscopic hematuria (principal)
CPT/HCPCS: 74178; Q9967

== ENCOUNTER → 2022-07-18 | Outpatient (CLI) | payer MEDICARE ==
[~2022-07-18] MED LIST changes: -ISOVUE-370 76% 100ML VIAL As Ordered ONE
[2022-07-18 12:40] LABS: HEMATOCRIT 35.1 % (36.0-47.0); HEMOGLOBIN 11.6 g/dl (12.0-15.5); MEAN CORPUSCULAR HEMOGLOBIN 31.5 pg (27.0-33.0); MEAN CORPUSCULAR VOLUME 95.4 fl (80.0-96.0); PLATELET COUNT, AUTOMATED 197 10^3/uL (150-450); RED BLOOD COUNT 3.68 10^6/uL (4.00-5.40); WHITE BLOOD COUNT 10.7 10^3/uL (4.0-10.0)
[2022-07-18 13:23] LABS: ALBUMIN 3.3 G/DL (3.2-5.2); ALKALINE PHOSPHATASE 55 U/L (46-116); ALT/SGPT 13 U/L (7.0-40); AST/SGOT 14 U/L (<34); BILIRUBIN,TOTAL 0.6 MG/DL (0.3-1.2); BLOOD UREA NITROGEN 23 MG/DL (9-23); CALCIUM LEVEL 9.9 MG/DL (8.3-10.6); CARBON DIOXIDE LEVEL 28 MMOL/L (20-31); CHLORIDE LEVEL 104 MMOL/L (98-107); CHOLESTEROL LEVEL 218 MG/DL (<200); CHOLESTEROL RISK RATIO 3.68 (<5); CREATININE FOR GFR 0.92 MG/DL (0.55-1.30); GLOMERULAR FILTRATION RATE > 60.0 (>32); GLUCOSE, FASTING 135 MG/DL (74-106); HDL CHOLESTEROL 59.1 MG/DL (>40); LDL CHOLESTEROL 108.9 MG/DL (<100); NON-HDL-C 158.9 MG/DL; POTASSIUM SERUM 4.4 MMOL/L (3.5-5.1); SODIUM LEVEL 140 MMOL/L (136-145); TOTAL PROTEIN 6.8 G/DL (5.7-8.2); TRIGLYCERIDES LEVEL 250 MG/DL (<150)
[2022-07-18 13:45] LABS: HEMOGLOBIN A1c 8.2 % (4.0-6.0)
== END ==
LOC: M WUC 10:30
PROVIDERS: ATTEND Family Medicine
DX: Z95.828 Presence of other vascular implants and grafts (principal); E11.618 Type 2 diabetes mellitus with other diabetic arthropathy; E78.2 Mixed hyperlipidemia

== ENCOUNTER → 2022-08-23 | Outpatient (CLI) | payer MEDICARE ==
[~2022-08-23] MED LIST changes: +ISOVUE-370 76% 100ML VIAL As Ordered ONE
== END ==
LOC: M RAD 09:39
PROVIDERS: ATTEND Surgery Vascular Surgery
DX: I73.9 Peripheral vascular disease, unspecified (principal)
CPT/HCPCS: 75635; Q9967

== ENCOUNTER → 2022-10-06 | Outpatient (REF) | payer MEDICARE ==
[~2022-10-06] MED LIST changes: -ISOVUE-370 76% 100ML VIAL As Ordered ONE
== END ==
LOC: M WUC 18:34
PROVIDERS: ATTEND Physician Assistant
DX: R30.0 Dysuria (principal)

== ENCOUNTER → 2022-10-12 | Outpatient (CLI) | payer MEDICARE | LOC: M PLAIMG 10:50 | PROVIDERS: ATTEND Physician Assistant | DX: R31.0 Gross hematuria (principal); N20.0 Calculus of kidney ==

== ENCOUNTER → 2023-01-24 | Outpatient (REF) | payer MEDICARE ==
[~2023-01-24] MED LIST changes: -OXYB5TAB10 PO; +OXYB5TAB11 PO
[2023-01-24 17:01] LABS: HEMATOCRIT 31.9 % (36.0-47.0); HEMOGLOBIN 10.3 g/dl (12.0-15.5); MEAN CORPUSCULAR HEMOGLOBIN 31.3 pg (27.0-33.0); MEAN CORPUSCULAR HGB CONC 32.3 g/dl (32.0-36.5); PLATELET COUNT, AUTOMATED 268 10^3/uL (150-450); RED BLOOD COUNT 3.29 10^6/uL (4.00-5.40); WHITE BLOOD COUNT 12.1 10^3/uL (4.0-10.0)
[2023-01-24 17:20] LABS: ALBUMIN 3.3 G/DL (3.2-5.2); BILIRUBIN,TOTAL 0.4 MG/DL (0.3-1.2); CALCIUM LEVEL 9.7 MG/DL (8.3-10.6); CHOLESTEROL RISK RATIO 3.56 (<5); CREATININE FOR GFR 1.33 MG/DL (0.55-1.30); FERRITIN 111.8 NG/ML (7.3-270.7); GLOMERULAR FILTRATION RATE 40.2 (>32); LDL CHOLESTEROL 93.4 MG/DL (<100); POTASSIUM SERUM 4.5 MMOL/L (3.5-5.1); TOTAL PROTEIN 7.2 G/DL (5.7-8.2)
[2023-01-24 17:22] LABS: HEMOGLOBIN A1c 6.7 % (4.0-6.0)
== END ==
LOC: M SFHCADAM 11:48
PROVIDERS: ATTEND Family Medicine
DX: E11.618 Type 2 diabetes mellitus with other diabetic arthropathy (principal); D63.8 Anemia in other chronic diseases classified elsewhere; Z95.828 Presence of other vascular implants and grafts; E78.5 Hyperlipidemia, unspecified

== ENCOUNTER → 2023-01-24 | Outpatient (CLI) | payer MEDICARE | LOC: M ADAMS 11:59 | PROVIDERS: ATTEND Family Medicine | DX: M47.816 Spondylosis without myelopathy or radiculopathy, lumbar region (principal) ==

== ENCOUNTER → 2023-05-08 | Outpatient (REF) | payer MEDICARE ==
[~2023-05-08] MED LIST changes: -OXYB5TAB11 PO; +OXYB5TAB14 PO
[2023-05-08 17:36] LABS: HEMATOCRIT 29.3 % (36.0-47.0); HEMOGLOBIN 9.6 g/dl (12.0-15.5); MEAN CORPUSCULAR HEMOGLOBIN 31.5 pg (27.0-33.0); MEAN CORPUSCULAR HGB CONC 32.8 g/dl (32.0-36.5); MEAN CORPUSCULAR VOLUME 96.1 fl (80.0-96.0); PLATELET COUNT, AUTOMATED 276 10^3/uL (150-450); RED BLOOD COUNT 3.05 10^6/uL (4.00-5.40); WHITE BLOOD COUNT 11.5 10^3/uL (4.0-10.0)
[2023-05-08 17:58] LABS: CALCIUM LEVEL 9.9 MG/DL (8.3-10.6); CREATININE FOR GFR 1.56 MG/DL (0.55-1.30); GLOMERULAR FILTRATION RATE 33.4 (>32); POTASSIUM SERUM 4.3 MMOL/L (3.5-5.1)
[2023-05-09 05:36] LABS: HEMOGLOBIN A1c 7.4 % (4.0-6.0)
== END ==
LOC: M SFHCADAM 14:56
PROVIDERS: ATTEND Family Medicine
DX: E11.618 Type 2 diabetes mellitus with other diabetic arthropathy (principal); D63.8 Anemia in other chronic diseases classified elsewhere

== ENCOUNTER → 2023-08-14 | Outpatient (CLI) | payer MEDICARE ==
[2023-08-14 17:30] LABS: HEMATOCRIT 32.2 % (36.0-47.0); HEMOGLOBIN 10.3 g/dl (12.0-15.5); MEAN CORPUSCULAR HEMOGLOBIN 31.1 pg (27.0-33.0); MEAN CORPUSCULAR VOLUME 97.3 fl (80.0-96.0); PLATELET COUNT, AUTOMATED 226 10^3/uL (150-450); RED BLOOD COUNT 3.31 10^6/uL (4.00-5.40); WHITE BLOOD COUNT 10.7 10^3/uL (4.0-10.0)
[2023-08-14 17:56] LABS: HEMOGLOBIN A1c 7.4 % (4.0-6.0)
[2023-08-14 18:00] LABS: ALBUMIN 3.4 G/DL (3.2-5.2); BILIRUBIN,TOTAL 0.5 MG/DL (0.3-1.2); CALCIUM LEVEL 9.8 MG/DL (8.3-10.6); CHOLESTEROL RISK RATIO 3.74 (<5); CREATININE FOR GFR 1.65 MG/DL (0.55-1.30); CREATININE, URINE 85.9 MG/DL; GLOMERULAR FILTRATION RATE 31.3 (>32); HDL CHOLESTEROL 51.6 MG/DL (>40); LDL CHOLESTEROL 98.4 MG/DL (<100); NON-HDL-C 141.4 MG/DL; PERCENT SATURATION 19.5 % (13.2-45.0); POTASSIUM SERUM 4.9 MMOL/L (3.5-5.1)
[2023-08-14 18:03] LABS: FERRITIN 68.4 NG/ML (7.3-270.7)
[2023-08-14 18:17] LABS: MAU/CREAT RATIO 722.9 MCG/MG (0.0-30.0)
== END ==
LOC: M WUC 13:11
PROVIDERS: ATTEND Family Medicine
DX: E11.618 Type 2 diabetes mellitus with other diabetic arthropathy (principal); D63.8 Anemia in other chronic diseases classified elsewhere; Z95.828 Presence of other vascular implants and grafts

== ENCOUNTER → 2023-08-14 | Outpatient (REF) | payer MEDICARE | LOC: M SFHCADAM 12:16 | PROVIDERS: ATTEND Family Medicine | DX: E11.618 Type 2 diabetes mellitus with other diabetic arthropathy (principal); D63.8 Anemia in other chronic diseases classified elsewhere; Z95.828 Presence of other vascular implants and grafts ==

== ENCOUNTER → 2023-11-14 | Outpatient (REF) | payer MEDICARE ==
[2023-11-14 18:32] LABS: HEMATOCRIT 32.9 % (36.0-47.0); HEMOGLOBIN 10.4 g/dl (12.0-15.5); MEAN CORPUSCULAR HEMOGLOBIN 31.7 pg (27.0-33.0); MEAN CORPUSCULAR HGB CONC 31.6 g/dl (32.0-36.5); MEAN CORPUSCULAR VOLUME 100.3 fl (80.0-96.0); PLATELET COUNT, AUTOMATED 206 10^3/uL (150-450); RED BLOOD COUNT 3.28 10^6/uL (4.00-5.40)
[2023-11-14 19:05] LABS: FERRITIN 73.2 NG/ML (7.3-270.7)
[2023-11-14 19:07] LABS: PERCENT SATURATION 24.3 % (13.2-45.0)
[2023-11-14 19:13] LABS: ALBUMIN 3.5 G/DL (3.2-5.2); BILIRUBIN,TOTAL 0.6 MG/DL (0.3-1.2); CALCIUM LEVEL 11.4 MG/DL (8.3-10.6); CHOLESTEROL RISK RATIO 3.72 (<5); CREATININE FOR GFR 1.56 MG/DL (0.55-1.30); GLOMERULAR FILTRATION RATE 33.3 (>32); HDL CHOLESTEROL 49.1 MG/DL (>40); LDL CHOLESTEROL 96.9 MG/DL (<100); NON-HDL-C 133.9 MG/DL; POTASSIUM SERUM 4.3 MMOL/L (3.5-5.1); TOTAL PROTEIN 7.4 G/DL (5.7-8.2)
[2023-11-14 19:37] LABS: HEMOGLOBIN A1c 7.1 % (4.0-6.0)
== END ==
LOC: M SFHCADAM 12:03
PROVIDERS: ATTEND Family Medicine
DX: E11.618 Type 2 diabetes mellitus with other diabetic arthropathy (principal); N18.32 Chronic kidney disease, stage 3b; D63.8 Anemia in other chronic diseases classified elsewhere; E78.5 Hyperlipidemia, unspecified

== ENCOUNTER → 2024-01-06 | Outpatient (CLI) | payer MEDICARE | LOC: M WUC 10:50 | PROVIDERS: ATTEND Registered Nurse | DX: J20.9 Acute bronchitis, unspecified (principal) ==

== ENCOUNTER → 2024-02-18 | Outpatient (REF) | payer MEDICARE ==
[2024-02-18 18:48] LABS: THYROID STIMULATING HORMONE 0.697 uIU/ML (0.55-4.78)
[2024-02-18 18:49] LABS: PERCENT SATURATION 19.5 % (13.2-45.0)
[2024-02-18 18:51] LABS: FREE T4 1.44 NG/DL (0.89-1.76)
[2024-02-18 18:53] LABS: BASO % 0.3 % (0.0-1.0); EOS # 0.2 10^3/uL (0.0-0.5); EOS % 1.8 % (0.0-3.0); HEMATOCRIT 33.3 % (36.0-47.0); HEMOGLOBIN 10.4 g/dl (12.0-15.5); LYMPH # 2.7 10^3/uL (1.5-5.0); LYMPH % 22.8 % (24.0-44.0); MEAN CORPUSCULAR HEMOGLOBIN 30.2 pg (27.0-33.0); MEAN CORPUSCULAR HGB CONC 31.2 g/dl (32.0-36.5); MEAN CORPUSCULAR VOLUME 96.8 fl (80.0-96.0); MONO # 0.8 10^3/uL (0.0-0.8); MONO % 6.9 % (2.0-8.0); NEUTROPHILS # 8.1 10^3/uL (1.5-8.5); NEUTROPHILS % 67.6 % (36.0-66.0); PLATELET COUNT, AUTOMATED 251 10^3/uL (150-450); RED BLOOD COUNT 3.44 10^6/uL (4.00-5.40)
[2024-02-18 18:56] LABS: ALBUMIN 3.4 G/DL (3.2-5.2); BILIRUBIN,TOTAL 0.4 MG/DL (0.3-1.2); CALCIUM LEVEL 9.6 MG/DL (8.3-10.6); CHOLESTEROL RISK RATIO 3.38 (<5); CREATININE FOR GFR 1.48 MG/DL (0.55-1.30); GLOMERULAR FILTRATION RATE 35.4 (>32); HDL CHOLESTEROL 56.7 MG/DL (>40); LDL CHOLESTEROL 88.3 MG/DL (<100); NON-HDL-C 135.3 MG/DL; POTASSIUM SERUM 4.3 MMOL/L (3.5-5.1); TOTAL PROTEIN 7.4 G/DL (5.7-8.2)
[2024-02-18 19:04] LABS: HEMOGLOBIN A1c 7.5 % (4.0-6.0)
== END ==
LOC: M SFHCADAM 13:51
PROVIDERS: ATTEND Family Medicine
DX: E11.618 Type 2 diabetes mellitus with other diabetic arthropathy (principal); I44.0 Atrioventricular block, first degree; R53.83 Other fatigue; D63.8 Anemia in other chronic diseases classified elsewhere; E78.5 Hyperlipidemia, unspecified; I11.9 Hypertensive heart disease without heart failure

== ENCOUNTER → 2024-08-18 | Outpatient (CLI) | payer MEDICARE ==
[~2024-08-18] MED LIST changes: -PRAV40TA2 PO; +PRAV40TA85 PO
[2024-08-18 15:36] LABS: PLATELET COUNT, AUTOMATED 187 10^3/uL (150-450)
[2024-08-18 15:44] LABS: ALT/SGPT 18.0 U/L (7.0-40); AST/SGOT 23.0 U/L (<34); CALCIUM LEVEL 9.4 MG/DL (8.3-10.6); CARBON DIOXIDE LEVEL 26.0 MMOL/L (20-31); CHLORIDE LEVEL 106.0 MMOL/L (98-107); CREATININE FOR GFR 1.79 MG/DL (0.55-1.30); GLOMERULAR FILTRATION RATE 26.9 (>32); IRON (FE) 74.0 UG/DL (50-170); PERCENT SATURATION 22.6 % (13.2-45.0); POTASSIUM SERUM 4.1 MMOL/L (3.5-5.1); SODIUM LEVEL 145.0 MMOL/L (136-145)
[2024-08-18 18:35] LABS: ESTIMATED AVERAGE GLUCOSE 134.0 MG/DL (60-110)
== END ==
LOC: M WUC 09:43
PROVIDERS: ATTEND Family Medicine
DX: D64.9 Anemia, unspecified (principal)

== ENCOUNTER → 2025-01-05 | Outpatient (CLI) | payer MEDICARE ==
[2025-01-05 13:26] LABS: ALT/SGPT 20 U/L (7.0-40); AST/SGOT 26 U/L (<34); CALCIUM LEVEL 9.5 MG/DL (8.3-10.6); CARBON DIOXIDE LEVEL 26 MMOL/L (20-31); CHLORIDE LEVEL 104 MMOL/L (98-107); CREATININE FOR GFR 2.10 MG/DL (0.55-1.30); GLOMERULAR FILTRATION RATE 22.1 (>32); POTASSIUM SERUM 4.4 MMOL/L (3.5-5.1); SODIUM LEVEL 141 MMOL/L (136-145)
[2025-01-05 13:29] LABS: VITAMIN B12 LEVEL 592 PG/ML (211-911)
[2025-01-05 13:30] LABS: FREE T4 1.37 NG/DL (0.89-1.76)
[2025-01-05 13:39] LABS: ESTIMATED AVERAGE GLUCOSE 140.0 MG/DL (60-110)
[2025-01-05 13:41] LABS: PLATELET COUNT, AUTOMATED 202 10^3/uL (150-450)
== END ==
LOC: M WUC 09:37
PROVIDERS: ATTEND Family Medicine
DX: D53.9 Nutritional anemia, unspecified (principal); E11.618 Type 2 diabetes mellitus with other diabetic arthropathy

== ENCOUNTER → 2025-01-19 | Outpatient (REF) | payer MEDICARE ==
[2025-01-19 19:01] LABS: IRON (FE) 61 UG/DL (50-170); PERCENT SATURATION 19.6 % (13.2-45.0)
[2025-01-19 19:03] LABS: VITAMIN B12 LEVEL 615 PG/ML (211-911)
== END ==
LOC: M LAB REF 17:48
PROVIDERS: ATTEND Student in an Organized Health Care Education/Training Program
DX: N18.9 Chronic kidney disease, unspecified (principal); D63.1 Anemia in chronic kidney disease

== ENCOUNTER → 2025-02-01 | Outpatient (CLI) | payer MEDICARE | LOC: M WUC 08:58 | PROVIDERS: ATTEND Physician Assistant | DX: R06.02 Shortness of breath (principal) ==